=== PATIENT | male | born 1975 | race African-American/Black ===

== ENCOUNTER → 2020-05-04 08:10 | Outpatient (BNVA) | payer OTHER, SELFPAY | PROVIDERS: PCP Nurse Practitioner Family; Visit Provider Nurse Practitioner Gerontology | DX: Z76.89 Persons encountering health services in other specified circumstances (principal) ==

== ENCOUNTER → 2020-08-18 10:32 | Outpatient (REF) | payer OTHER, SELFPAY ==
--- NOTE | 2020-08-18 10:38 | CA_ITS ---
Transthoracic Echocardiogram Patient (Last, First, Middle): Wali Solo, Gender: Male Date of : 1975 Age: 44 Procedure Date: 08/18/2020 Procedure Type: Transthoracic Echocardiogram Location: OP Height: 193.04 cm Weight: 142.88 kg BSA: 2.69 m2 Heart Rate: bpm BP: 140 / 88 mmHg Arcade Games Mechanic: LAURO Gaming MD: Bassem Kelly [facility] Fan Blade Truer: Luis Rios MD Symptoms: R01.1 - Cardiac murmur, unspecified Study Quality: Fair ECG Rhythm: Sinus Conclusions: - Essentially normal study Findings Procedure Information The patient receives contrast. Left Ventricle Normal left ventricular size, thickness, and systolic function. The visually estimated ejection fraction is between 60-65%. Diastolic function is normal for age. Right Ventricle Normal right ventricular cavity size and systolic function. Atria Both atria are normal in size. There is no evidence of interatrial shunt. Aortic Valve Normal aortic valve structure and function. There is no aortic valve stenosis. There is no aortic valve regurgitation. Mitral Valve Normal mitral valve structure and function. There is trace mitral valve regurgitation. There is no mitral valve stenosis. Pulmonic Valve The pulmonic valve is likely normal. There is mild pulmonic valve regurgitation. Tricuspid Valve Normal tricuspid valve structure. Tricuspid regurgitation envelope is inadequate for calculation of right ventricular systolic pressure. Great Vessels All visible segments of the aorta are normal in size. The pulmonary artery was not well visualized. Venous The inferior vena cava is normal in size and collapses greater than 50% with inspiration. Pericardium/Pleural There is no evidence of pericardial effusion. Prior Study Comparison No prior study available for comparison. Measurements 2D Linear Measurements RVIDd: 3.72 RVIDd Index: 1.38 IVSd: 1.15 0.6-0.9/0.6-1.0 cm LVIDd: 5.71 3.9-5.3/4.2-5.9 cm LVIDd Index: 2.12 2.4-3.2/2.2-3.1 cm/m2 LVIDs: 3.60 2.0-3.6 cm LVPWd: 1.19 0.7-1.1 cm Ao Root: 2.80 2.1-3.5 cm LA Diam: 4.70 2.7-3.8/3.0-4.0 cm LAIDs Index: 1.75 1.5-2.3 cm/m2 LV Mass: 348.91 67-162/88-224 g LV Mass Index: 129.71 43-95/49-115 g/m2 LVOT Diam: 2.50 3.0+(-)1.3 cm 2D Systolic Function EF 4C: 63.20 >55% EF 2C: 55.70 >55% EF BiP: 60.10 >55% Mitral Valve MV Pk E: 1.04 MV PK A: 0.69 MV Decel Time: 155.00 E/A: 1.50 E'Lateral: 9.57 E'Medial: 7.74 E/E' Med: 13.40 E/E' Lat: 10.90 Aortic Valve AoV Pk Amrik: 1.66 AoV Mn Amrik: 1.20 AoV VTI: 0.30 AoV Pk Grad: 11.00 Aov Mn Grad: 6.00 MURIEL Cont.VTI: 3.33 LVOT LVOT Pk Amrik: 1.16 LVOT Mn Amrik: 0.84 LVOT VTI: 0.20 LVOT Pk Grad: 5.00 LVOT Mn Grad: 3.00 LVOT Diam: 2.50 LVOT Area: 4.91 Diastolic Function MV Pk E: 1.04 MV Pk A: 0.69 E/A: 1.50 E'Medial: 7.74 E/E' Med: 13.40 E' Laterial: 9.57 E/E' Lat: 10.90 Tricuspid Valve RA Press: 3.00 Great Vessels Aorta Ao Root-2D: 2.80 2.0-3.7 cm Ao Asc: 3.30 2.1-3.4 cm Ao Arch: 2.90 Updated in Other Vendor System with Status of Final Luis Rios MD electronically signed on 08/18/2020 3:54:03 PM with status of Final
== END ==
LOC: HO.CARD 10:32
PROVIDERS: PCP Nurse Practitioner Family; Visit Provider Nurse Practitioner Family
DX: R01.1 Cardiac murmur, unspecified (principal)
CPT/HCPCS: 93306; Q9957

== ENCOUNTER → 2021-05-19 08:24 | Outpatient (BNVA) | payer OTHER, SELFPAY | PROVIDERS: PCP Nurse Practitioner Family; Visit Provider Nurse Practitioner Gerontology ==

== ENCOUNTER → 2021-08-17 07:57 | Outpatient (BNVA) | payer OTHER, SELFPAY | PROVIDERS: PCP Nurse Practitioner Family; Visit Provider Nurse Practitioner Gerontology | DX: E10.65 Type 1 diabetes mellitus with hyperglycemia (principal); E10.22 Type 1 diabetes mellitus with diabetic chronic kidney disease; I12.9 Hypertensive chronic kidney disease with stage 1 through stage 4 chronic kidney disease, or unspecified chronic kidney disease; N18.30 Chronic kidney disease, stage 3 unspecified; E78.5 Hyperlipidemia, unspecified | CPT/HCPCS: 82947; 83036; 99212 ==

== ENCOUNTER → 2021-09-15 13:59 | Outpatient (BNVA) | payer OTHER, SELFPAY | PROVIDERS: PCP Nurse Practitioner Family; Visit Provider Registered Nurse Diabetes Educator | DX: E10.65 Type 1 diabetes mellitus with hyperglycemia (principal); Z79.4 Long term (current) use of insulin | CPT/HCPCS: 99211 ==

== ENCOUNTER 2022-01-12 12:51 | Outpatient (REF) | payer OTHER, SELFPAY ==
--- NOTE | ~2022-01-12 | US_ITS ---
EXAMINATION: ULTRASOUND EXTREMITY SOFT TISSUES NONVASCULAR CLINICAL INFORMATION: Left hip swelling COMPARISON: None TECHNIQUE: Grayscale and color imaging of the soft tissues over the lateral left hip and an area of palpable abnormality using a linear transducer. Comparison imaging of the right hip was performed. FINDINGS: No soft tissue mass or fluid collection is appreciated. US/US extremity nonvascular huffman IMPRESSION: No abnormality seen by ultrasound.
== END 2022-01-12 12:52 | disposition home or self-care (01) ==
LOC: HO.US 12:51
PROVIDERS: Visit Provider Nurse Practitioner Family
DX: M79.89 Other specified soft tissue disorders (principal)
CPT/HCPCS: 76882

== ENCOUNTER 2023-03-29 10:23 | Outpatient (AMB) | payer OTHER, SELFPAY ==
[2023-03-29 10:26] VITALS: BP 148/86; PULSE 92; BMI 40.8
--- NOTE | 2023-03-29 10:26 | MHC.OFFVIS ---
Intake Vital Signs 03/29/23 10:26 Height 6 ft 4 in Weight 335 lb 1.642 oz BMI 40.8 BP 148/86 H Blood Pressure Location Lt brachial Position Sitting Pulse 92 Pulse Source Pulse Oximeter Intake Visit Reasons: dm Intake Note: Patient presents today to follow up on DMT2. Last Diabetic Eye exam: 05/2021 Last Podiatry Visit: 03/2023 Random Glucose: 169 mg/dl HgA1C: 7.5% Guide Dog Instructor Required: No Accompanied by: Self / Same As Patient Allergies No Known Allergies Allergy (Verified 03/29/23 10:44) HPI HPI Comments History of Present Illness Details Patient is 47 yo male with DM type 1 diagnosed in May of 2017 a presents for continued management Patient was last seen 08/17/2021 by Latesha Blanchard NP Past medical history:DM1, CKD stage 3, hyperlipidemmia. Micro and macrovascular complications: + nephropathy, +Neuropathy, hx of osteomyelititis with amputation onf 2nd & 3rd toe of right foot. Diabetes medications:Toujeo 68 units. Admelog 18 units prior to breakfast and lunch and 28 units prior to dinner. Plus correction scale of plus 2 units for blood sugars over 200, +4 units for blood sugars over 250 and plus 6 units for blood sugars over 300. Unfortunately, patient did not bring sensor or glucometer follow-up visit Hypoglycemia: rare, over a month or two ago. Hyperglycemia: + urinary frequency (drinks a gallon of water daily), denies nocturia, + polydypsia Last eye exam: 05/2021 - ou no retinopathy. Needs to make appt [facility] Medical History (Updated 08/08/22 @ 12:47 by MARIANN Granados-CRISTELA) Amputation of left great toe Osteomyelitis of left foot Sepsis Osteomyelitis of foot Dyslipidemia Low vitamin B12 level Low vitamin D level Chronic kidney disease, stage 3 Type 1 diabetes mellitus with hyperglycemia Surgical History History of amputation of toe Family History Father Diabetes Mother Diabetes Social History Household Members: Family Housing: House Patient Tobacco Use Status: Former Tobacco user Quit Date: 20 yrs ago Physical Exam Absence of Cushingoid features. Absence of acromegalic features. Neck exam reveals nl size thyroid about 15 gms. No thyroid nodules palpable. No carotid bruits present. Lungs CTA. Heart S1 S2, Reg R/R. No M/R/ G. Skin exam reveals absence of vitiligo or acanthosis nigricans. Abdominal exam reveals Soft NT/ND with NA BS. No organomegaly present. Neck Other: . Extrem Other: Visual exam of foot performed. S/P amputation of R 2nd and 3 rd digits and L 1st digit No ulcerations or open lesions. No onchomycosis, no callouses.Pulses 2 + distally Sensationdecreased to monofilament exam. Vibratory sensation sensed is decreased with 128 Hz tuning fork Results AMB Hemoglobin A1c AMB Hemoglobin A1c 7.5 % Last Edit by Jazz Ortiz on 03/29/23 10:49 Assessment & Plan Assessment & Plan (1) Type 1 diabetes mellitus with hyperglycemia: Code(s): E10.65 - Type 1 diabetes mellitus with hyperglycemia Plan: This is a 47-year-old white male with history of type 1 diabetes being treated with basal-bolus insulin with glycemic control and known microvascular complications namely + nephropathy, +Neuropathy, hx of osteomyelititis with amputation onf 2nd & 3rd toe of right foot. Plan is to reinitiate the Solo 2 . He should also check basic metabolic panel, lipid profile, microalbumin to creatinine ratio as ordered by his primary care provider. Cannot make any adjustments insulin regimen because of lack of data. Will also check anti-G AD 65 antibody to differentiate between type 1 and type 2 diabetes. If patient has type 2 diabetes could consider using a GLP 1 agonist in combination with insulin depending on renal function. Orders: Orders AMB Hemoglobin A1c Today E10.65 - Type 1 diabetes mellitus with hyperglycemia Glutamic acid decarboxylase Ab Today E10.65 - Type 1 diabetes mellitus with hyperglycemia Medications: Refilled flash glucose sensor (FreeStyle Solo 2 Sensor kit) As directed every 2 weeks 2 ea 11RF Coding Level of Care Code Est Pt Level 4 (63257) Diagnoses Type 1 diabetes mellitus with hyperglycemia E10.65
[2023-04-02 07:37] LABS: Glucose, Whole Blood 169 mg/dL (60-115)
== END 2023-03-29 11:26 | disposition home or self-care (01) ==
PROVIDERS: PCP Nurse Practitioner Family; Visit Provider Internal Medicine Endocrinology, Diabetes & Metabolism
DX: E10.65 Type 1 diabetes mellitus with hyperglycemia (principal)
CPT/HCPCS: 99214

== ENCOUNTER → 2023-03-29 10:23 | Outpatient (BNVA) | payer OTHER, SELFPAY | PROVIDERS: PCP Nurse Practitioner Family; Visit Provider Internal Medicine Endocrinology, Diabetes & Metabolism | DX: E10.65 Type 1 diabetes mellitus with hyperglycemia (principal) | CPT/HCPCS: 82947; 83036; 99212 ==

== ENCOUNTER 2023-05-14 08:46 | Outpatient (AMB) | payer OTHER, SELFPAY ==
--- NOTE | 2023-05-14 08:47 | A.OFFPC_ITS ---
Vital Signs 05/14/23 08:50 Height 6 ft 4 in Weight 331 lb BMI 40.3 BP 120/80 Blood Pressure Location Rt brachial Position Sitting Pulse 84 Pulse Source Pulse Oximeter Pulse Oximetry (%) 97 Oxygen Delivery Method Room Air Intake Visit Reasons: f/u DM- NEEDS PHQ9 + THRIVE Intake Note: Patient here for diabetes F/U. Pt states sugars have been decent at home. Allergies No Known Allergies Allergy (Verified 05/14/23 08:50) Medication List - Last Reconciled 05/14/23 by MARIANN Granados- amlodipine 10 mg PO DAILY blood sugar diagnostic As directed cyanocobalamin (vitamin B-12) 1,000 mcg IM .Qmonthly fenofibrate 54 mg PO DAILY flash glucose scanning reader ([employer]Style Solo 2 [place]) As directed flash glucose sensor (FreeStyle Solo 2 Sensor kit) As directed every 2 weeks folic acid 0.8 mg PO DAILY insulin glargine U-300 conc (Toujeo Max U-300 SoloStar) 68 units (0.2267 mL) subcut DAILY insulin lispro Inject 18 units before breakfast and lunch and 24 units before supper subcutaneously; irbesartan 150 mg PO DAILY ketoconazole 2% 1 appl topical DAILY 30 days lancets (OOTUyle Lancets) As directed pen needle, diabetic (BD Ultra-Fine Cassandra Pen Needle) As directed pravastatin 80 mg PO DAILY 90 days Tobacco use date assessed: 05/14/23 Dental Screening Dental Screen Date: 05/14/23 Did you have a dental visit in the last 12 months?: No Did you have a dental problem in the last 6 months where you did not have access to dental care?: No Was dental information given to patient?: Patient has dentist HPI f/u DM- NEEDS PHQ9 + THRIVE HPI Details HTN: Blood pressure is stable, managed with amlodipine 10mg and irbesartan 150mg. Denies chest pain, shortness of breath, headache, dizziness, and blurred vision. Dyslipidemia: Pt's last cholesterol and trigs were elevated (labs from [facility]). Will increase pravastatin from 20mg to 80mg. Will also start fenofibrate 54mg. Pt is a type 1 diabetic, sees endo. Hx of B12 deficiency, will order labs. Hx of CKD, pt does not have a media coordinator, will refer. Due for colon screen, will refer to GI. [facility] Medical History (Updated 05/14/23 @ 09:16 by TARUN Granados) Amputation of left great toe Osteomyelitis of left foot Sepsis Osteomyelitis of foot Dyslipidemia Low vitamin B12 level Low vitamin D level Chronic kidney disease, stage 3 Type 1 diabetes mellitus with hyperglycemia Surgical History History of amputation of toe Family History Father Diabetes Mother Diabetes Social History Household Members: Family Housing: House Patient Tobacco Use Status: Former Tobacco user Quit Date: 20 yrs ago e-Cigarette/Vaping Use: Never Used service: No Current occupational status: employed Cognitive needs: No Hearing needs: No Vision needs: Yes Questionnaire PHQ-9 Over the last 2 weeks, how often have you been bothered by any of the following problems? 1. Little interest or pleasure in doing things: not at all 2. Feeling down, depressed, or hopeless: not at all 3. Trouble falling or staying asleep, or sleeping too much: several days 4. Feeling tired or having little energy: not at all 5. Poor appetite or overeating: not at all 6. Feeling bad about yourself - or that you are a failure or have let yourself or your family down: not at all 7. Trouble concentrating on things, such as reading the newspaper or watching television: not at all 8. Moving or speaking so slowly that other people could have noticed. Or the opposite - being so fidgety or restless that you have been moving around a lot more than usual: not at all 9. Thoughts that you would be better off or of hurting yourself in some way: not at all Total score: 1 Depression Screening Interpretation: Negative Depression Screening Done: Yes 51114 - PHQ-9 Billing: Yes Source: Developed by Drs. Karthik Christie, Priya Winchester, Terence Jo and colleagues, with an educational meri from [employer]. Thrive Questionnaire Date Thrive assessed: 05/14/23 I am a: Patient What is your living situation today?: I have a steady place to live Within the past 12 months, did the food you bought not last and you didn't have the money to get more?: Never true Within the past 12 months, did you worry whether your food would run out before you got money to buy more?: Never true Do you have trouble paying for medicines?: No Do you have trouble getting transportation to medical appointments?: No Do you have trouble paying your heating and electricity bill?: No Do you have trouble taking care of your child, family member or friend?: No Do you have trouble with day-to-day activities such as bathing, preparing meals, shopping, managing finances, etc.?: No Are you currently unemployed and looking for a job?: No Are you interested in more education?: No THRIVE Score: 0 AUDIT C Alcohol Use Questionnaire (AUDIT-C) 1. How often do you have a drink containing alcohol?: Monthly or less 2. How many drinks containing alcohol do you have on a typical day when you are drinking?: 1 or 2 3. How often do you have six or more drinks on one occasion?: Never Total Score: 1 Score Reviewed/Action Taken: No DENA-7 AMB Questionnaire DENA-7 Date DENA - 7 assessed: 05/14/23 Feeling nervous, anxious, or on edge: 0 = Not at all Not being able to stop or control worryin = Not at all Worrying too much about different things: 0 = Not at all Trouble relaxin = Not at all Being so restless that it is hard to sit still: 0 = Not at all Becoming easily annoyed or irritable: 0 = Not at all Feeling afraid as if something awful might happen: 0 = Not at all Total DENA-7 score (0-4 normal; 5-9 mild; 10-14 moderate; 15-21 severe): 0 Source: Developed by Drs. Karthik Christie, Priya Winchester, Terence Jo and colleagues, with an educational meri from [employer] DENA-7 Assessment Billing DENA-7 Assessment Tool: DENA-7 Assessment 89665 Review of Systems Const Reports as per HPI Physical exam (Primary Care) Vital Signs: Last Vital Signs Pulse 84 01/22/24 08:50 BP 120/80 05/14/23 08:50 Pulse Ox 97 05/14/23 08:50 Oxygen Delivery Method Room Air 05/14/23 08:50 BMI result Body Mass Index 40.3 Tobacco/Smoking Status: Tobacco use Status Tobacco use date assessed 05/14/23 05/14/23 08:53 Patient Tobacco Use Status Former Tobacco user 05/14/23 08:49 e-Cigarette/Vaping Use Never Used 05/14/23 08:53 Depression Screening Interpretation: Negative Const General: cooperative Nutritional Appearance: obese morbidly obese Orientation/consciousness: patient oriented x3 Resp Effort & Inspection: normal respiratory effort Auscultation: clear to auscultation bilaterally Cardio Rate: regular rate Rhythm: regular rhythm Heart sounds: S1 normal heart sound present and S2 normal heart sound present Neuro General: patient oriented x3 Extrem Other: no sensation with use of monofilament left foot, + sensation to right foot, right foot missing toes 2 and 3, left foot missing tip of 1st toe, hammertoes noted to left foot, callous formation to distal plantar aspect of right foot, +1 pitting edema to BLE, left>right Psych Appearance: grossly normal Mental Status: mental status grossly normal Speech and movement: Normal speech and movement present Affect: normal affect Attitude: cooperative Thought process: Normal thought process present Thought content: Normal thought content present Insight: Good insight present (Psych) Judgement: Good judgement present (Psych) Assessment and Plan Assessment & Plan (1) Low vitamin B12 level: Code(s): E53.8 - Deficiency of other specified B group vitamins Plan: Labs ordered (2) Chronic kidney disease, stage 3: Code(s): N18.30 - Chronic kidney disease, stage 3 unspecified Plan: referred to nephrology (3) Type 1 diabetes mellitus with hyperglycemia: Code(s): E10.65 - Type 1 diabetes mellitus with hyperglycemia (4) Microhematuria: Code(s): R31.29 - Other microscopic hematuria (5) Screening for colon cancer: Code(s): Z12.11 - Encounter for screening for malignant neoplasm of colon (6) Low vitamin D level: Code(s): R79.89 - Other specified abnormal findings of blood chemistry Plan The patient agreed to the use of a medical underwriter for this encounter. Scribed for TARUN Mahoney by Melly Quijano medical underwriter, on 05/14/2023 at 09:00 EST. Orders: Orders Intrinsic Factor Antibodies Today E53.8 - Deficiency of other specified B group vitamins Parietal Cell Antibody Today E53.8 - Deficiency of other specified B group vitamins Urine Cytology Today R31.29 - Other microscopic hematuria Urine Culture Today R31.29 - Other microscopic hematuria UA CC w/rflx Micro + Cult Today R31.29 - Other microscopic hematuria Endomysial IgA rflx Titer Today E53.8 - Deficiency of other specified B group vitamins Vitamin B12 and Folate Today E53.8 - Deficiency of other specified B group vitamins CT urogram Today R31.29 - Other microscopic hematuria Transglutaminase IgA Today E53.8 - Deficiency of other specified B group vitamins Vitamin D 25-OH Total Today R79.89 - Other specified abnormal findings of blood chemistry Referrals Nephrology Referral E10.65 - Type 1 diabetes mellitus with hyperglycemia, N18.30 - Chronic kidney disease, stage 3 unspecified Urology Referral R31.29 - Other microscopic hematuria Gastroenterology Referral Z12.11 - Encounter for screening for malignant neoplasm of colon Medications: New fenofibrate 54 mg PO DAILY 90 tabs 0RF Changed From pravastatin Future refills pending upcoming appt 20 mg PO DAILY 90 days 90 tabs 0RF To pravastatin Future refills pending upcoming appt 80 mg PO DAILY 90 days 90 tabs 0RF Coding Level of Care Code Est Pt Level 3 (99741) Diagnoses Low vitamin B12 level E53.8 Chronic kidney disease, stage 3 N18.30 Type 1 diabetes mellitus with hyperglycemia E10.65 Microhematuria R31.29 Screening for colon cancer Z12.11 Low vitamin D level R79.89 Additional Codes DENA-7 Assessment Billing - DENA-7 Assessment Tool: DENA-7 Assessment 96150 ([id number])
[2023-05-14 08:50] VITALS: BP 120/80; PULSE 84; O2SAT 97; BMI 40.3
== END 2023-05-14 09:22 | disposition home or self-care (01) ==
PROVIDERS: PCP Nurse Practitioner Family; Visit Provider Nurse Practitioner Family
DX: N18.30 Chronic kidney disease, stage 3 unspecified (principal); E10.65 Type 1 diabetes mellitus with hyperglycemia; E53.8 Deficiency of other specified B group vitamins; R31.29 Other microscopic hematuria; Z12.11 Encounter for screening for malignant neoplasm of colon; R79.89 Other specified abnormal findings of blood chemistry
CPT/HCPCS: 99213

== ENCOUNTER 2023-07-09 11:01 | Outpatient (AMB) | payer OTHER, SELFPAY ==
--- NOTE | 2023-07-09 11:08 | A.OFFVIS_ITS ---
Intake Intake Visit Reasons: microscopic hematuria Intake Note: NEW Patient presents today to established treatment for microscopic hematuria Meds- None Allergies to antibiotics: None Blood thinners: None Mushroom Cultivator Required: No Accompanied by: Self / Same As Patient Allergies No Known Allergies Allergy (Verified 07/09/23 11:10) HPI HPI Comments History of Present Illness Details Andrea is a 47-year-old male who is here for evaluation due to microsco pic hematuria. He has a history of cigarette smoking between the ages of about [age] he states he smokes about 2 cigarettes a day. He no longer uses nicotine products. He denies irritative voiding symptoms. I have discussed that reasons for blood in the urine may include but are not limited to kidney stones, cancer in the urinary tract, BPH, kidney stone disease or inflammatory conditions of the urinary tract. I have discussed workup to include cystoscopy evaluation. Urinalysis 3+ protein, 1+ blood Plan: Urine for cytology. The patient has a CT scan already pending for07/25/23 PSA screening. Follow-up for office cystoscopy. The patient states he has a Nephrology visit pending as well. [facility] Medical History Amputation of left great toe Osteomyelitis of left foot Sepsis Osteomyelitis of foot Dyslipidemia Low vitamin B12 level Low vitamin D level Chronic kidney disease, stage 3 Type 1 diabetes mellitus with hyperglycemia Surgical History History of amputation of toe Family History Father Diabetes Mother Diabetes Social History Household Members: Family Housing: House Patient Tobacco Use Status: Former Tobacco user Quit Date: 20 yrs ago e-Cigarette/Vaping Use: Never Used service: No Current occupational status: employed Cognitive needs: No Hearing needs: No Vision needs: Yes Review of Systems Const All systems reviewed & are unremarkable except as noted in HPI and below Reports no additional complaints Eyes Reports no additional complaints ENT Reports no additional complaints Card Denies dyspnea Resp Denies cough and Denies dyspnea GI Reports no additional complaints Musc Reports no additional complaints Skin/Breast Denies rash and Denies unusual bruising Neuro Reports no additional complaints Psych Reports no additional complaints Endo Reports no additional complaints Tomy/Lymph Reports no additional complaints Aller/Immun Reports no additional complaints Physical Exam Const General: healthy appearing, no acute distress and well developed Orientation/consciousness: patient oriented x3 HEENT Head: Yes normocephalic and Yes atraumatic Eyes Conjunctivae: conjunctivae normal Neck Neck: Yes normal visual inspection Chest Chest palpation & inspection: normal inspection of the chest Resp Effort & Inspection: normal respiratory effort Cardio Rate: regular rate GI Inspection: Yes normal to inspection Skin General skin exam: no rashes or lesions noted Neuro General: patient oriented x3 Extrem General: No pedal edema Psych Appearance: grossly normal Affect: normal affect Results AMB Urinalysis, Automated UA Leukoctes 0 Ginger/uL Last Edit by Kristina Flores CMA on 07/09/23 11 :20 UA Nitrite Negative Last Edit by Kristina Flores CMA on 07/09/23 11: 20 UA Urobilinogen 0.2 mg/dL Last Edit by Kristina Flores CMA on 4 11:20 UA Protein 300 mg/dL Last Edit by Kristina Flores CMA on 07/09/23 11: 20 UA pH 5.5 Last Edit by Kristina Flores [facility] on 07/09/23 11:20 UA Blood 25 Rah/uL Last Edit by Kristina Flores [facility] on 07/09/23 11:20 UA Specific [place] 1.030 Last Edit by Kristina Flores CMA on 11:20 UA Ketone Negative Last Edit by Kristina Flores CMA on 07/09/23 11:2 0 UA Bilirubin 00 mg/dL Last Edit by Kristina Flores CMA on 07/09/23 11 :20 UA Glucose 0 mg/dL Last Edit by Kristina Flores CMA on 07/09/23 11:20 Results Reviewed Results Reviewed: Laboratory Last Values Urine pH (Auto) 5.5 07/09/23 11:10 Specific [place] (Auto) 1.030 07/09/23 11:10 Urine Protein (Auto) 300 mg/dL 07/09/23 11:10 Glucose (UA)(Auto) 0 mg/dL 07/09/23 11:10 Urine Ketones (Auto) Negative 07/09/23 11:10 Urine Blood (Auto) 25 Rah/uL 07/09/23 11:10 Urine Nitrite (Auto) Negative 07/09/23 11:10 Urine Bilirubin (Auto) 00 mg/dL 07/09/23 11:10 Urine Urobilinogen (Auto) 0.2 mg/dL 07/09/23 11:10 Leukocyte Esterase (Auto) 0 Ginger/uL 07/09/23 11:10 Assessment & Plan Assessment & Plan (1) Screening PSA (prostate specific antigen): Code(s): Z12.5 - Encounter for screening for malignant neoplasm of prostate (2) Microhematuria: Code(s): R31.29 - Other microscopic hematuria (3) Proteinuria: Code(s): R80.9 - Proteinuria, unspecified Plan CT abdomen- pending for 07/25/2023 PSA Urine for cytology Follow-up office cystoscopy Patient has nephrology visit pending Orders: Orders AMB Urinalysis Automated Today R33.9 - Retention of urine, unspecified PSA,Total (Free>4and<10) Today Z12.5 - Encounter for screening for malignant neoplasm of prostate Patient Instructions: The patient had an opportunity to ask questions regarding treatment plan. All questions were answered. Laboratory studies and physical exam results were discussed and reviewed in detail. No major barriers to understanding were identified. The patient expressed understanding and agreement with the above treatment plan. The patient is aware they should contact our office by phone for worsening of their current condition or the appearance of new symptoms. Compliance is encouraged with any medications and followup testing that is ordered. It is a privilege to be allowed the opportunity to participate in the urologic care of your patient. If you have any questions or concerns regarding treatment for the above conditions please do not hesitate to contact me. The office telephone contact is [phone]. This note is constructed in part using voice recognition software. While every effort has been made to ensure accuracy clerical office errors may have been included. Yours sincerely, Brian Fragoso MD Coding Level of Care Code New Pt Level 4 (53443) Diagnoses Screening PSA (prostate specific antigen) Z12.5 Microhematuria R31.29 Proteinuria R80.9
== END 2023-07-09 11:49 | disposition home or self-care (01) ==
PROVIDERS: PCP Nurse Practitioner Family; Visit Provider Urology
DX: Z12.5 Encounter for screening for malignant neoplasm of prostate (principal); R31.29 Other microscopic hematuria; R80.9 Proteinuria, unspecified; R33.9 Retention of urine, unspecified
CPT/HCPCS: 99204

== ENCOUNTER 2023-07-09 11:08 | Outpatient (REF) | payer OTHER, SELFPAY ==
[2023-07-09 16:33] LABS: Urine Cytology See Pathology rpt
== END 2023-07-09 11:09 | disposition home or self-care (01) ==
LOC: HO.LAB 11:08
PROVIDERS: PCP Nurse Practitioner Family; Visit Provider Urology
DX: R31.29 Other microscopic hematuria (principal); R80.9 Proteinuria, unspecified; Z12.5 Encounter for screening for malignant neoplasm of prostate
CPT/HCPCS: 81003; 88112; 99202

== ENCOUNTER 2023-07-09 12:16 | Outpatient (REF) | payer OTHER, SELFPAY ==
[2023-07-09 16:02] LABS: MANUAL DIFF FLAG NO
[2023-07-09 16:13] LABS: Basophils Percent Auto 0.3 % (0-2); Eosinophils Absolute Auto 0.1 X10*3/uL (0.0-0.4); Eosinophils Percent Auto 1.4 % (0-4); Hematocrit 36.7 % (42.0-52.0); Imm Gran Abs Auto 0.02 X10*3/uL (0.00-0.03); Imm Gran Pct Auto 0.3 % (0.0-0.4); Lymphocytes Absolute Auto 1.8 X10*3/uL (1.2-4.9); Lymphocytes Percent Auto 25.6 % (20-40); Mean Corpuscular HGB Conc 32.7 g/dl (31.0-36.0); Mean Corpuscular Hemoglobin 28.4 pg (27.0-33.0); Mean Corpuscular Volume 86.8 fL (80.0-98.0); Monocytes Absolute Auto 0.7 X10*3/uL (0.1-1.2); Monocytes Percent Auto 10.1 % (2-11); Neutrophils Absolute Auto 4.4 x10*3/uL (2.0-8.3); Neutrophils Percent Auto 62.3 % (45-73); Platelet Count 296 X10*3/uL (160-400); Red Blood Count 4.23 X10*6/uL (4.60-5.80); Red Cell Distribution Width 14.1 % (11.0-16.0); White Blood Count 7.1 X10*3/uL (4.8-10.8)
[2023-07-09 16:23] LABS: Estimated Average Glucose 183 mg/dL
[2023-07-09 16:36] LABS: Alanine Aminotransferase 31 U/L (0-40); Albumin Level 4.3 g/dL (3.5-5.0); Alkaline Phosphatase 46 U/L (39-117); Anion Gap 14 (12-20); Aspartate Amino Transferase 28 U/L (5-37); Bilirubin Total 0.5 mg/dL (0.0-1.0); Blood Urea Nitrogen 25 mg/dL (9-16); Calcium 9.7 mg/dL (8.4-10.2); Carbon Dioxide 25 mmol/L (22-29); Chloride 104 mmol/L (96-108); Cholesterol 234 mg/dL (<200); Estimated Glomerular Filt Rate 51; Glucose Fasting 179 mg/dL (60-99); HDL Cholesterol 48 mg/dL (>40); LDL Cholesterol Calculated 142 mg/dL (<100); Potassium 4.5 mmol/L (3.3-5.1); Sodium 138 mmol/L (135-145); Total Protein 7.7 g/dL (6.5-8.0); Triglycerides 224 mg/dL (<150)
[2023-07-09 16:53] LABS: PSA,Total (Free>4and<10) 0.35 ng/mL (0.00-4.00)
[2023-07-09 16:55] LABS: TSH reflex Free T4 0.88 uIU/mL (0.32-4.0); Vitamin D 25-OH Total 11.4 ng/mL (>30)
[2023-07-09 17:04] LABS: Folate 16.8 ng/mL (> or = 4.0); Vitamin B12 751 pg/mL (200-900)
[2023-07-10 20:48] LABS: Transglutaminase IgA <1.0 U/mL
[2023-07-12 18:39] LABS: Intrinsic Factor Antibodies Negative (Negative)
[2023-07-13 13:09] LABS: Endomysial IgA Antibody Negative (Negative)
[2023-07-14 12:58] LABS: Parietal Cell Antibody <=20.0 Unit (<=20.0)
== END 2023-07-09 12:17 | disposition home or self-care (01) ==
LOC: HO.HMGCLDS 12:16
PROVIDERS: PCP Nurse Practitioner Family; Referring Provider Urology; Visit Provider Nurse Practitioner Family
DX: E10.65 Type 1 diabetes mellitus with hyperglycemia (principal); E53.8 Deficiency of other specified B group vitamins; E78.5 Hyperlipidemia, unspecified; D64.9 Anemia, unspecified; R31.29 Other microscopic hematuria; R33.9 Retention of urine, unspecified; E55.9 Vitamin D deficiency, unspecified; Z12.5 Encounter for screening for malignant neoplasm of prostate
CPT/HCPCS: 36415; 80053; 80061; 82306; 82607; 82746; 83036; 83516; 84153; 84443; 85025; 86231; 86340; 86364

== ENCOUNTER 2023-07-25 07:59 | Outpatient (REF) | payer OTHER, SELFPAY ==
--- NOTE | ~2023-07-25 | CT_ITS ---
EXAMINATION: CT ABDOMEN AND PELVIS WITHOUT AND WITH CONTRAST CLINICAL INFORMATION: Microscopic hematuria. COMPARISON: None available. TECHNIQUE: Noncontrast CT of the abdomen and pelvis is performed followed by split bolus contrast-enhanced images using 85 mL Omnipaque 350 contrast.? Postcontrast imaging is performed during the combined nephrogram and excretion phase. Sagittal and coronal reformatted images were obtained on the technologist's workstation for both the precontrast and postcontrast phases. This CT examination was performed using dose optimization techniques as appropriate, variously including the following: *Automated exposure control *Adjustment of mA and/or kV according to patient size (this includes techniques or standardized protocols for targeted exams where dose is matched to indication/reason for exam; i.e. extremities or head) *Use of iterative reconstruction technique DLP: 1624 mGy-cm FINDINGS: LUNG BASES: The visualized lung bases are unremarkable. LIVER, GALLBLADDER, AND BILIARY TREE: Enlarged liver measuring 21 cm right lobe length. Hepatic steatosis. No discrete liver mass. No biliary ductal dilatation. The gallbladder is unremarkable with no evidence of radiopaque gallstones, gallbladder wall thickening, or obvious pericholecystic inflammatory changes. PANCREAS: No discrete pancreatic mass or pancreatic ductal dilatation. SPLEEN: The spleen appears normal. ADRENAL GLANDS: No adrenal mass. KIDNEYS AND URETERS: 2 mm nonobstructing calculus in the upper pole of the left kidney. Suspect at least 3 punctate nonobstructing calculi in the right kidney. The nephrograms are symmetric. No suspicious renal mass. Tiny hypodensity in the anterior right upper kidney is too small to characterize but likely a small cyst. No imaging follow-up is recommended. Urinary excretion is symmetric. No hydroureteronephrosis. No ureteral calculus. No filling defect in the collecting systems. BLADDER: There is decompressed. No discrete bladder mass. GASTROINTESTINAL TRACT: The small and large bowel are normal in caliber. The appendix is normal. No discrete bowel mass is seen. ABDOMINAL WALL: Small fat-containing umbilical hernia. LYMPH NODES: No bulky adenopathy. VASCULAR: Mild aortic atherosclerosis. PELVIC VISCERA: Unremarkable. OSSEUS STRUCTURES: Degenerative changes in the spine. CT/CT urogram IMPRESSION: 2 mm nonobstructing calculus upper left kidney and 3 punctate nonobstructing calculi in the right kidney. No hydroureteronephrosis.
[2023-07-25] MEDS: iohexoL 350 MG/ML 100 ML INFUS..BTL IV (08:48)
== END 2023-07-25 08:00 | disposition home or self-care (01) ==
LOC: HO.CT 07:59
PROVIDERS: PCP Nurse Practitioner Family; Visit Provider Nurse Practitioner Family
DX: R31.29 Other microscopic hematuria (principal)
CPT/HCPCS: 74178; Q9967

== ENCOUNTER 2023-08-24 09:56 | Outpatient (AMB) | payer OTHER, SELFPAY ==
[2023-08-24 10:02] VITALS: BP 140/80; PULSE 90; O2SAT 96; BMI 40.3
--- NOTE | 2023-08-24 10:02 | HO.NEPHOV ---
Vital Signs 08/24/23 10:02 Height 6 ft 4 in Weight 331 lb 2 oz BMI 40.3 BP 140/80 H Blood Pressure Location Rt brachial Position Sitting Pulse 90 Pulse Source Pulse Oximeter Pulse Oximetry (%) 96 Oxygen Delivery Method Room Air Intake Visit Reasons: Rscng 08/07 appt- CKD 3/ LVM Consulting Nurse Required: No Accompanied by: Self / Same As Patient Allergies No Known Allergies Allergy (Verified 08/24/23 10:04) HPI Comments Details: I would the privilege of seeing Mr. Solo for mild LAURA, CKD, proteinuria and hypertension on a backdrop of diabetes mellitus. He denies any diabetic retinopathy or neuropathy. His hemoglobin A1c has gone high. He has dyslipidemia and is on medications. He has gained significant weight. He has some pedal edema. He has not had any coronary artery disease, congestive heart failure, CVA, carotid stenosis, peripheral arterial disease or known renal artery stenosis. He does not take any excessive nonsteroidal anti-inflammatory medications. His recent renal ultrasound showed a renal cyst as well as bilateral renal calculi. He has not known to have any prostatic issues. He has not had any hospitalizations for urinary tract infections as a child. He denies epistaxis, recurrent sinusitis, sore throat, recent antibiotic intake, hematuria, sensorineural deafness. His serum creatinine has gone up to 1.47 PFSH Medical History Amputation of left great toe Osteomyelitis of left foot Sepsis Osteomyelitis of foot Dyslipidemia Low vitamin B12 level Low vitamin D level Chronic kidney disease, stage 3 Type 1 diabetes mellitus with hyperglycemia Surgical History History of amputation of toe Family History Father Diabetes Mother Diabetes Social History Household Members: Family Housing: House Patient Tobacco Use Status: Former Tobacco user Quit Date: 20 yrs ago e-Cigarette/Vaping Use: Never Used service: No Current occupational status: employed Cognitive needs: No Hearing needs: No Vision needs: Yes Physical Exam Vital Signs: Last Vital Signs Pulse 90 08/24/23 10:02 BP 140/80 H 08/24/23 10:02 Pulse Ox 96 08/24/23 10:02 Oxygen Delivery Method Room Air 08/24/23 10:02 BMI result Body Mass Index 40.3 Const General: comfortable and no acute distress Orientation/consciousness: patient oriented x3 HEENT Head: Yes normocephalic Mouth: Normal oral and palatal mucosa present Eyes EOM: EOMs intact bilaterally Neck Neck: Yes supple Resp Auscultation: clear to auscultation bilaterally Cardio Jugular venous distension: no JVD Rate: regular rate GI Palpation (GI): Soft to palpation Auscultation: normal bowel sounds General: Yes no CVA tenderness Back/Spine/Pelvis Back: no CVA tenderness Skin General skin exam: no rashes or lesions noted Neuro General: patient oriented x3 and moves all extremities Extrem General: Yes edema Results Reviewed Nephrology Results: Hgb 12.0 g/dl (14.0-18.0) L 07/09/23 WBC 7.1 X10*3/uL (4.8-10.8) 07/09/23 Plt Count 296 X10*3/uL (160-400) 07/09/23 Sodium 138 mmol/L (135-145) 07/09/23 Potassium 4.5 mmol/L (3.3-5.1) 07/09/23 Chloride 104 mmol/L (96-108) 07/09/23 Carbon Dioxide 25 mmol/L (22-29) 07/09/23 BUN 25 mg/dL (9-16) H 07/09/23 Creatinine 1.49 mg/dL (0.5-1.4) H 07/09/23 Calcium 9.7 mg/dL (8.4-10.2) 07/09/23 Assessment & Plan Assessment & Plan (1) CKD stage 3 secondary to diabetes: Code(s): E11.22 - Type 2 diabetes mellitus with diabetic chronic kidney disease; N18.30 - Chronic kidney disease, stage 3 unspecified Category: Medical (2) Essential (primary) hypertension: Code(s): I10 - Essential (primary) hypertension Category: Medical (3) Renal cyst: Code(s): N28.1 - Cyst of kidney, acquired Category: Medical (4) Renal calculus: Code(s): N20.0 - Calculus of kidney Category: Medical (5) Diabetic nephropathy: Code(s): E11.21 - Type 2 diabetes mellitus with diabetic nephropathy Category: Medical Qualifiers: Diabetes mellitus type: type 2 Qualified Code(s): E11.21 - Type 2 diabetes mellitus with diabetic nephropathy Plan Mr. Solo has mild LAURA. Differential diagnosis includes progression of his diabetic renal disease. He is at risk for secondary FSGS given his BMI. He is on fenofibrate. He is hypervolemic. He has been on amlodipine which has been discontinued due to gingival hyperplasia. He is on ARB. Given his renal calculi, edema and history hypertension I started him on chlorthalidone 12.5 mg daily. I asked him to cut back sodium in the diet and aim for significant weight loss. He will be a candidate for Farxiga which I plan to initiate with time. If his serum creatinine is going up I plan to temporarily hold his fenofibrate. We may have to cut back or hold his ARB as well if his serum creatinine rises. I encouraged him to avoid nonsteroidal anti-inflammatories and maintain good hydration. He can cut back meat in the diet along with sodium especially given renal calculi. He should have more fruits and vegetables and increase citrate in the diet. I plan to do a 24 urine collection for stone screen with time. We will check his serum uric acid at the next visit. His blood pressure needs to be maintain a goal. I have ordered follow-up blood work and plan to see him in a couple of weeks for continued care. Answered all questions. Follow-up appointment given. Orders: Orders Blood Urea Nitrogen Today Electrolytes Today Calcium Today Creatinine Today Immunofixation Pnl, Serum Today Protein Creatinine Ratio, Ur Today Medications: New chlorthalidone 12.5 mg (1/2 x 25 mg) PO DAILY 30 days 15 tabs 3RF Coding Level of Care Code New Pt Level 4 (48540) Diagnoses CKD stage 3 secondary to diabetes E11.22; N18.30 Essential (primary) hypertension I10 Renal cyst N28.1 Renal calculus N20.0 Diabetic nephropathy associated with type 2 diabetes mellitus E11.21 Diabetes mellitus type: type 2
== END 2023-08-24 10:41 | disposition home or self-care (01) ==
PROVIDERS: PCP Nurse Practitioner Family; Visit Provider Internal Medicine Nephrology
DX: E11.22 Type 2 diabetes mellitus with diabetic chronic kidney disease (principal); N18.30 Chronic kidney disease, stage 3 unspecified; I10 Essential (primary) hypertension; N28.1 Cyst of kidney, acquired; N20.0 Calculus of kidney; E11.21 Type 2 diabetes mellitus with diabetic nephropathy
CPT/HCPCS: 99204

== ENCOUNTER → 2023-08-24 09:56 | Outpatient (BNVA) | payer OTHER, SELFPAY | PROVIDERS: PCP Nurse Practitioner Family; Visit Provider Internal Medicine Nephrology | DX: I12.9 Hypertensive chronic kidney disease with stage 1 through stage 4 chronic kidney disease, or unspecified chronic kidney disease (principal); E11.22 Type 2 diabetes mellitus with diabetic chronic kidney disease; N18.30 Chronic kidney disease, stage 3 unspecified; E11.21 Type 2 diabetes mellitus with diabetic nephropathy; N28.1 Cyst of kidney, acquired; N17.9 Acute kidney failure, unspecified; N20.0 Calculus of kidney | CPT/HCPCS: 99202 ==

== ENCOUNTER 2023-10-16 10:04 | Outpatient (REF) | payer OTHER, SELFPAY ==
[2023-10-16 10:20] LABS: MANUAL DIFF FLAG NO
[2023-10-16 10:35] LABS: Basophils Percent Auto 0.4 % (0-2); Eosinophils Absolute Auto 0.2 X10*3/uL (0.0-0.4); Eosinophils Percent Auto 2.3 % (0-4); Hematocrit 35.4 % (42.0-52.0); Hemoglobin 11.8 g/dl (14.0-18.0); Imm Gran Abs Auto 0.02 X10*3/uL (0.00-0.03); Imm Gran Pct Auto 0.3 % (0.0-0.4); Immature Retic Fraction 21.2 % (2.3-13.4); Lymphocytes Absolute Auto 2.5 X10*3/uL (1.2-4.9); Lymphocytes Percent Auto 33.6 % (20-40); Mean Corpuscular HGB Conc 33.3 g/dl (31.0-36.0); Mean Corpuscular Hemoglobin 28.1 pg (27.0-33.0); Mean Corpuscular Volume 84.3 fL (80.0-98.0); Monocytes Absolute Auto 0.6 X10*3/uL (0.1-1.2); Monocytes Percent Auto 8.3 % (2-11); Neutrophils Absolute Auto 4.2 x10*3/uL (2.0-8.3); Neutrophils Percent Auto 55.1 % (45-73); Platelet Count 277 X10*3/uL (160-400); Red Cell Distribution Width 13.4 % (11.0-16.0); Retic HGB Equivalent 31.9 pg (30.0-35.0); Reticulocyte Percent 2.1 % (0.5-1.8); White Blood Count 7.6 X10*3/uL (4.8-10.8)
[2023-10-16 10:38] LABS: Urine Cytology See Pathology rpt
[2023-10-16 10:42] LABS: Appearance Urine Clear; Color Urine Yellow; Glucose Urine UA 100 mg/dL (Negative); Leukocyte Esterase Urine Negative (Negative); Nitrite Urine Negative (Negative); Specific Gravity - Urine >= 1.030 (1.005-1.025); UMIC TRIGGER UACC YES; Urine Blood Trace (Negative); Urine Ketones Negative (Negative); Urine Protein 300 (3+) mg/dL (Neg-Trace)
[2023-10-16 11:13] LABS: Bacteria Urine None Seen (None Seen); Hyaline Casts Urine 0-2 /LPF (0-2); RBC Urine 0-2 /HPF (0-2); Squamous Epithelial Cell Urine 0-2 /HPF (0-2); WBC Urine 0-5 /HPF (0-5)
[2023-10-16 11:23] LABS: Blood Urea Nitrogen 37 mg/dL (9-16)
[2023-10-16 11:28] LABS: Alanine Aminotransferase 28 U/L (0-40); Albumin Level 4.4 g/dL (3.5-5.0); Alkaline Phosphatase 47 U/L (39-117); Anion Gap 15 (12-20); Aspartate Amino Transferase 30 U/L (5-37); Bilirubin Total 0.5 mg/dL (0.0-1.0); Blood Urea Nitrogen 36 mg/dL (9-16); Calcium 9.7 mg/dL (8.4-10.2); Carbon Dioxide 26 mmol/L (22-29); Chloride 101 mmol/L (96-108); Cholesterol 216 mg/dL (<200); Estimated Glomerular Filt Rate 39; Glucose Fasting 164 mg/dL (60-99); HDL Cholesterol 42 mg/dL (>40); Iron 89 mcg/dL (45-160); LDL Cholesterol Calculated 120 mg/dL (<100); Percent Iron Saturation 36 % (15-50); Potassium 3.9 mmol/L (3.3-5.1); Sodium 138 mmol/L (135-145); Total Iron Binding Capacity 247 mcg/dL (228-428); Total Protein 8.1 g/dL (6.5-8.0); Triglycerides 274 mg/dL (<150); Unsaturated Iron Binding 158 ug/dL
[2023-10-16 11:31] LABS: Creatinine Urine 288.89 mg/dL
[2023-10-16 11:40] LABS: Protein/Creatinine Ratio, Ur 0.79 (<0.2); Total Protein Urine Random 229 mg/dL (<12)
[2023-10-16 11:41] LABS: Microalbum/Creatinine Ratio Ur 582.9 ug/mg cr (<30)
[2023-10-16 11:47] LABS: Ferritin 742 ng/mL (20-250)
[2023-10-18 22:58] LABS: IgA 382 mg/dL (47-310); IgG 1325 mg/dL (600-1640); IgM 126 mg/dL (50-300)
== END 2023-10-16 10:05 | disposition home or self-care (01) ==
LOC: HO.LAB 10:04
PROVIDERS: Absent Provider Nurse Practitioner Family; PCP Nurse Practitioner Family; Visit Provider Internal Medicine Nephrology
DX: E10.65 Type 1 diabetes mellitus with hyperglycemia (principal); R31.29 Other microscopic hematuria; D64.9 Anemia, unspecified; E78.5 Hyperlipidemia, unspecified
CPT/HCPCS: 36415; 80053; 80061; 81001; 82043; 82310; 82570; 82728; 82784; 83540; 84156; 84520; 85025; 85045; 86334; 87086; 88112

== ENCOUNTER 2023-10-17 10:54 | Outpatient (AMB) | payer OTHER, SELFPAY ==
[2023-10-17 11:00] VITALS: BP 130/80; PULSE 113; O2SAT 99; BMI 39.3
--- NOTE | 2023-10-17 11:00 | HO.NEPHOV ---
Vital Signs 10/17/23 11:00 Height 6 ft 4 in Weight 322 lb 8 oz BMI 39.3 BP 130/80 Blood Pressure Location Lt brachial Position Sitting Pulse 113 H Pulse Source Pulse Oximeter Pulse Oximetry (%) 99 Oxygen Delivery Method Room Air Intake Visit Reasons: CKD/ 3 weeks fu/ Conf Animal Services Officer Required: No Accompanied by: Self / Same As Patient Allergies No Known Allergies Allergy (Verified 10/17/23 11:03) HPI Comments Details: Mr. Solo was seen for CKD, proteinuria and hypertension on a backdrop of diabetes mellitus. He denies any diabetic retinopathy or neuropathy. His hemoglobin A1c has gone high. He has dyslipidemia and is on medications. He has lost some weight. He has no pedal edema on Chlorthalidone. He has not had any coronary artery disease, congestive heart failure, CVA, carotid stenosis, peripheral arterial disease or known renal artery stenosis. He does not take any excessive nonsteroidal anti-inflammatory medications. His recent renal ultrasound showed a renal cyst as well as bilateral renal calculi. He has not known to have any prostatic issues. He has not had any hospitalizations for urinary tract infections as a child. He denies epistaxis, recurrent sinusitis, sore throat, recent antibiotic intake, hematuria, sensorineural deafness. His serum creatinine has gone up to 1.86 PFSH Medical History Amputation of left great toe Osteomyelitis of left foot Sepsis Osteomyelitis of foot Dyslipidemia Low vitamin B12 level Low vitamin D level Chronic kidney disease, stage 3 Type 1 diabetes mellitus with hyperglycemia Surgical History History of amputation of toe Family History Father Diabetes Mother Diabetes Social History Household Members: Family Housing: House Patient Tobacco Use Status: Former Tobacco user e-Cigarette/Vaping Use: Never Used service: No Current occupational status: employed Cognitive needs: No Hearing needs: No Vision needs: Yes Physical Exam Vital Signs: Last Vital Signs Pulse 113 H 10/17/23 11:00 BP 130/80 10/17/23 11:00 Pulse Ox 99 10/17/23 11:00 Oxygen Delivery Method Room Air 10/17/23 11:00 BMI result Body Mass Index 39.3 Const General: comfortable and no acute distress Orientation/consciousness: patient oriented x3 HEENT Head: Yes normocephalic Mouth: Normal oral and palatal mucosa present Eyes EOM: EOMs intact bilaterally Neck Neck: Yes supple Resp Auscultation: clear to auscultation bilaterally Cardio Jugular venous distension: no JVD Rate: regular rate GI Palpation (GI): Soft to palpation Auscultation: normal bowel sounds General: Yes no CVA tenderness Back/Spine/Pelvis Back: no CVA tenderness Skin General skin exam: no rashes or lesions noted Neuro General: patient oriented x3 and moves all extremities Extrem General: Yes no pedal edema Results Reviewed Nephrology Results: Hgb 11.8 g/dl (14.0-18.0) L 10/16/23 WBC 7.6 X10*3/uL (4.8-10.8) 10/16/23 Plt Count 277 X10*3/uL (160-400) 10/16/23 Sodium 138 mmol/L (135-145) 10/16/23 Potassium 3.9 mmol/L (3.3-5.1) 10/16/23 Chloride 101 mmol/L (96-108) 10/16/23 Carbon Dioxide 26 mmol/L (22-29) 10/16/23 BUN 36 mg/dL (9-16) H 10/16/23 Creatinine 1.86 mg/dL (0.5-1.4) H 10/16/23 Calcium 9.7 mg/dL (8.4-10.2) 10/16/23 Urine Protein 300 (3+) mg/dL (Neg-Trace) H 10/16/23 Urine Creatinine 292.80 mg/dL 10/16/23 Protein/Creatinin Ratio 0.79 (<0.2) H 10/16/23 Assessment & Plan Assessment & Plan (1) Diabetic nephropathy: Code(s): E11.21 - Type 2 diabetes mellitus with diabetic nephropathy Category: Medical Qualifiers: Diabetes mellitus type: type 2 Qualified Code(s): E11.21 - Type 2 diabetes mellitus with diabetic nephropathy (2) CKD stage 3 secondary to diabetes: Code(s): E11.22 - Type 2 diabetes mellitus with diabetic chronic kidney disease; N18.30 - Chronic kidney disease, stage 3 unspecified Category: Medical (3) Renal calculus: Code(s): N20.0 - Calculus of kidney Category: Medical (4) Renal cyst: Code(s): N28.1 - Cyst of kidney, acquired Category: Medical (5) Chronic kidney disease, stage 3: Code(s): N18.30 - Chronic kidney disease, stage 3 unspecified Category: Medical Qualifiers: Chronic kidney disease stage 3 subtype: stage 3a (GFR 45-59) Qualified Code(s): N18.31 - Chronic kidney disease, stage 3a (6) Hypertension: Code(s): I10 - Essential (primary) hypertension Category: Medical Qualifiers: Hypertension type: primary hypertension Qualified Code(s): I10 - Essential (primary) hypertension Plan Mr. Solo has mild LAURA likely from diuresis. Differential diagnosis includes progression of his diabetic renal disease. He is at risk for secondary FSGS given his BMI. He is on fenofibrate which I asked him to hold for now. He has been on amlodipine which has been discontinued due to gingival hyperplasia. He is on Avapro which I reduced the dose to 75 mg and reduced his Chlorthalidone to every other day, given recent rise in serum creatinine. I asked him to cut back sodium in the diet and aim for significant weight loss. He will be a candidate for Farxiga which I plan to initiate with time. We may have to hold his ARB as well if his serum creatinine rises. He may need renal biopsy. I encouraged him to avoid nonsteroidal anti-inflammatories and maintain good hydration. He can cut back meat in the diet along with sodium especially given renal calculi. He should have more fruits and vegetables and increase citrate in the diet. I plan to do a 24 urine collection for stone screen with time. We will check his serum uric acid at the next visit. His blood pressure needs to be maintain a goal. I have ordered follow-up blood work and plan to see him in a couple of weeks for continued care. Answered all questions. Follow-up appointment given Orders: Orders Creatinine Today E11.21 - Type 2 diabetes mellitus with diabetic nephropathy, E11.22 - Type 2 diabetes mellitus with diabetic chronic kidney disease, N18.30 - Chronic kidney disease, stage 3 unspecified, N20.0 - Calculus of kidney, N28.1 - Cyst of kidney, acquired Electrolytes Today E11.21 - Type 2 diabetes mellitus with diabetic nephropathy, E11. - Type 2 diabetes mellitus with diabetic chronic kidney disease, N18.30 - Chronic kidney disease, stage 3 unspecified, N20.0 - Calculus of kidney, N28.1 - Cyst of kidney, acquired Blood Urea Nitrogen Today E11. - Type 2 diabetes mellitus with diabetic nephropathy, E11.22 - Type 2 diabetes mellitus with diabetic chronic kidney disease, N18.30 - Chronic kidney disease, stage 3 unspecified, N20.0 - Calculus of kidney, N28.1 - Cyst of kidney, acquired Coding Level of Care Code Est Pt Level 4 (61532) Diagnoses Diabetic nephropathy associated with type 2 diabetes mellitus E11. Diabetes mellitus type: type 2 CKD stage 3 secondary to diabetes E11.; N18.30 Renal calculus N20.0 Renal cyst N28.1 Stage 3a chronic kidney disease N18.31 Chronic kidney disease stage 3 subtype: stage 3a (GFR 45-59) Primary hypertension I10 Hypertension type: primary hypertension
== END 2023-10-17 11:20 | disposition home or self-care (01) ==
PROVIDERS: PCP Nurse Practitioner Family; Visit Provider Internal Medicine Nephrology
DX: E11.21 Type 2 diabetes mellitus with diabetic nephropathy (principal); E11.22 Type 2 diabetes mellitus with diabetic chronic kidney disease; N18.30 Chronic kidney disease, stage 3 unspecified; N20.0 Calculus of kidney; N28.1 Cyst of kidney, acquired; N18.31 Chronic kidney disease, stage 3a; I10 Essential (primary) hypertension
CPT/HCPCS: 99214

== ENCOUNTER → 2023-10-17 10:54 | Outpatient (BNVA) | payer OTHER, SELFPAY | PROVIDERS: PCP Nurse Practitioner Family; Visit Provider Internal Medicine Nephrology | DX: E11.21 Type 2 diabetes mellitus with diabetic nephropathy (principal); E11.22 Type 2 diabetes mellitus with diabetic chronic kidney disease; I12.9 Hypertensive chronic kidney disease with stage 1 through stage 4 chronic kidney disease, or unspecified chronic kidney disease; N18.31 Chronic kidney disease, stage 3a; N28.1 Cyst of kidney, acquired; N20.0 Calculus of kidney | CPT/HCPCS: 99212 ==

== ENCOUNTER 2023-11-01 08:59 | Outpatient (AMB) | payer OTHER, SELFPAY ==
--- NOTE | 2023-11-01 09:07 | A.OFFVIS_ITS ---
Vital Signs 11/01/23 09:08 Height 6 ft 4 in Weight 319 lb 10.724 oz BMI 38.9 BP 136/88 Blood Pressure Location Rt brachial Position Sitting Pulse 87 Pulse Source Pulse Oximeter Intake Visit Reasons: DM1/CONFIRMED Intake Note: New Patient presents today to established treatment for Diabetes Type 1: Most recent Eye Exam: DUE Most recent Podiatry Exam: Has an appt on 11/20/2023 Most recent HbA1c: 9.1%, 11/01/2023 Random Glucose- 195mg/dL, Today Spanish Instructor Required: No Accompanied by: Self / Same As Patient Allergies No Known Allergies Allergy (Verified 11/01/23 09:07) HPI Comments Details: Patient is 47 yo male with DM type 1 diagnosed in May of 2017 a presents for continued management Patient was last seen by Dr. Crews 04/14. Past medical history:DM1, CKD stage 3, hyperlipidemmia. Micro and macrovascular complications: + nephropathy, +Neuropathy, hx of o steomyelititis with amputation onf 2nd & 3rd toe of right foot. Diabetes medications:Toujeo 68 units. Admelog 18 units prior to breakfast and lunch and 28 units prior to dinner. Plus correction scale of plus 2 units for blood sugars over 200, +4 units for blood sugars over 250 and plus 6 units for blood sugars over 300. Hyperglycemia: + urinary frequency (drinks a gallon of water daily), denies nocturia, + polydypsia Last eye exam: 05/2021 - ou no retinopathy. Needs to make appt [facility] Medical History Amputation of left great toe Osteomyelitis of left foot Sepsis Osteomyelitis of foot Dyslipidemia Low vitamin B12 level Low vitamin D level Chronic kidney disease, stage 3 Type 1 diabetes mellitus with hyperglycemia Surgical History History of amputation of toe Family History Father Diabetes Mother Diabetes Social History Household Members: Family Housing: House Patient Tobacco Use Status: Former Tobacco user e-Cigarette/Vaping Use: Never Used service: No Current occupational status: employed Cognitive needs: No Hearing needs: No Vision needs: Yes Physical Exam Vital Signs: Last Vital Signs Pulse 87 11/01/23 09:08 BP 136/88 11/01/23 09:08 BMI result Body Mass Index 38.9 Results Reviewed Results Reviewed: Laboratory Last Values Glucose (Clinic) 195 mg/dL (60-115) H 11/01/23 09:15 Assessment & Plan Assessment & Plan (1) Type 1 diabetes mellitus with hyperglycemia: Code(s): E10.65 - Type 1 diabetes mellitus with hyperglycemia Category: Medical Plan: Poor diabetic control with patient with worsening kidney disease. We discussed at length the absolute need to get his sugars under good control. He has interested in the ilet insulin pump with G7 sensor. He is He will meet with the senior security analyst for pre pump education. If interested in proceeding forward,he could start on a G7 at that visit. In the meantime we will change his Toujeo to degludec as this may provide a more consistent basal coverage for him. Degludec U 200 72 units. Admelog 18 units prior to breakfast and lunch and 28 units prior to dinner. Plus correction scale of plus 2 units for blood sugars over 200, +4 units for blood sugars over 250 and plus 6 units for blood sugars over 300. The patient was counseled to always carry a source of sugar and on the rule of 15's: Take 3 glucose tablets and repeat again in 15 minutes if blood sugar is not in normal range. Continue to repeat every 15 minutes until blood sugar is normal. The patient was counseled to achieve a target A1C of 7% (154 avg) the fasting blood sugars should be 90-130 in the morning and less than 180 two hours after meals. Risks of uncontrolled diabetes discussed with the patient. Orders: Orders AMB Hemoglobin A1c Today E11.9 - Type 2 diabetes mellitus without complications Coding Level of Care Code Est Pt Level 5 (72589) Complex EM visit Add On G2211 Diagnoses Type 1 diabetes mellitus with hyperglycemia E10.65 Time Spent (min) 60 Comment Time spent reviewing labs/previous provider notes, face to face, chart documentation
[2023-11-01 09:08] VITALS: BP 136/88; PULSE 87; BMI 38.9
[2023-11-01 09:19] LABS: Glucose, Whole Blood 195 mg/dL (60-115)
== END 2023-11-01 10:09 | disposition home or self-care (01) ==
PROVIDERS: PCP Nurse Practitioner Family; Visit Provider Nurse Practitioner Adult Health
DX: E10.65 Type 1 diabetes mellitus with hyperglycemia (principal)
CPT/HCPCS: 99215; 99417; G2211

== ENCOUNTER → 2023-11-01 08:59 | Outpatient (BNVA) | payer OTHER, SELFPAY | PROVIDERS: PCP Nurse Practitioner Family; Visit Provider Nurse Practitioner Adult Health | DX: E10.65 Type 1 diabetes mellitus with hyperglycemia (principal) | CPT/HCPCS: 82947; 99212 ==

== ENCOUNTER 2023-11-05 07:22 | Outpatient (AMB) | payer OTHER, SELFPAY ==
--- NOTE | 2023-11-05 07:05 | MHC.PC.OV ---
Intake Visit Reasons: reschedual from 10/23 Allergies No Known Allergies Allergy (Verified 11/05/23 07:21) Medication List - Last Reconciled 11/05/23 by ELISA [place] blood sugar diagnostic As directed chlorthalidone 12.5 mg (1/2 x 25 mg) PO DAILY cholecalciferol (vitamin D3) 50 mcg PO DAILY cyanocobalamin (vitamin B-12) 1,000 mcg IM .Qmonthly ezetimibe 10 mg PO DAILY fenofibrate 54 mg PO DAILY flash glucose scanning reader (Tamir BiotechnologyStyle Solo 2 [place]) As directed flash glucose sensor (FreeStyle Solo 2 Sensor kit) As directed every 2 weeks folic acid 0.8 mg PO DAILY insulin glargine U-300 conc (Toujeo Max U-300 SoloStar) 68 units (0.2267 mL) subcut DAILY insulin lispro Inject 18 units before breakfast and lunch and 24 units before supper subcutaneously; irbesartan 150 mg PO DAILY ketoconazole 2% 1 appl topical DAILY 30 days lancets ([place] Lancets) As directed pen needle, diabetic (BD Ultra-Fine Cassandra Pen Needle) As directed pravastatin 80 mg PO DAILY 90 days Tobacco use date assessed: 05/14/23 Dental Screening Dental Screen Date: 05/14/23 HPI reschedual from 10/23 HPI Details Seeing endo and nephrology (Hx of DM 1 and CKD stage 3). Pt reports feeling well, has upcoming appts with endo and nephrology scheduled. Will cont to monitor labs (PSA added). Weight loss hein, pt is scheduled to meet with a quality assurance qa lab technician. Encouraged he make this appt, and explained the relevance behind a good diet. B12 def: taking 1000mcg of b12 Qmonthly, will cont to monitor levels PFSH Medical History Amputation of left great toe Osteomyelitis of left foot Sepsis Osteomyelitis of foot Dyslipidemia Low vitamin B12 level Low vitamin D level Chronic kidney disease, stage 3 Type 1 diabetes mellitus with hyperglycemia Surgical History History of amputation of toe Family History Father Diabetes Mother Diabetes Social History Household Members: Family Housing: House Patient Tobacco Use Status: Former Tobacco user e-Cigarette/Vaping Use: Never Used service: No Current occupational status: employed Cognitive needs: No Hearing needs: No Vision needs: Yes Questionnaire Thrive Questionnaire Date Thrive assessed: 05/14/23 DENA-7 AMB Questionnaire DENA-7 Date DENA - 7 assessed: 05/14/23 Source: Developed by Drs. Karthik Christie, Priya Winchester, Terence Jo and colleagues, with an educational meri from [facility]. Physical exam (Primary Care) Tobacco/Smoking Status: Tobacco use Status Tobacco use date assessed 05/14/23 11/05/23 07:06 Patient Tobacco Use Status Former Tobacco user 11/05/23 07:06 e-Cigarette/Vaping Use Never Used 11/05/23 07:06 Thrive Assessment: Date of Thrive Assessment Date Thrive assessed 05/14/23 11/05/23 07:06 Psych Appearance: grossly normal Mental Status: mental status grossly normal Speech and movement: Normal speech and movement present Affect: normal affect Attitude: cooperative Thought process: Normal thought process present Thought content: Normal thought content present Telehealth Telehealth Telehealth Platform: [employer] Location of provider rendering services: practice address Location of patient: address on file Patient Identification confirmed using: Name, : Yes Telehealth method: video Patient verbally consented to treatment: Yes Patient verbally consented to billing insurance company: Yes Patient informed of any privacy concerns related to visit: Yes Minutes spent on Phone/Video with Pt.: 10 Assessment and Plan Assessment & Plan (1) Type 1 diabetes mellitus with hyperglycemia: Code(s): E10.65 - Type 1 diabetes mellitus with hyperglycemia Plan: cont to follow up with endo (2) Chronic kidney disease, stage 3: Code(s): N18.30 - Chronic kidney disease, stage 3 unspecified Qualifiers: Chronic kidney disease stage 3 subtype: stage 3a (GFR 45-59) Qualified Code(s): N18.31 - Chronic kidney disease, stage 3a Plan: cont to follow up with nephrology (3) Screening PSA (prostate specific antigen): Code(s): Z12.5 - Encounter for screening for malignant neoplasm of prostate (4) Obesity: Code(s): E66.9 - Obesity, unspecified Plan: following up with nephrology (5) Low vitamin B12 level: Code(s): E53.8 - Deficiency of other specified B group vitamins Plan: will check levels Orders: Orders Comprehensive [place]. Panel Fast Today E10.65 - Type 1 diabetes mellitus with hyperglycemia, N18.31 - Chronic kidney disease, stage 3a Prostate Specific Antigen Scr Today Z12.5 - Encounter for screening for malignant neoplasm of prostate Vitamin B12 and Folate Today E53.8 - Deficiency of other specified B group vitamins Complete Blood Count Auto Diff Today E10.65 - Type 1 diabetes mellitus with hyperglycemia, N18.31 - Chronic kidney disease, stage 3a TSH reflex Free T4 Today E10.65 - Type 1 diabetes mellitus with hyperglycemia, N18.31 - Chronic kidney disease, stage 3a UA CC w/rflx Micro + Cult Today E10.65 - Type 1 diabetes mellitus with hyperglycemia, N18.31 - Chronic kidney disease, stage 3a Lipid Panel Today E10.65 - Type 1 diabetes mellitus with hyperglycemia, N18.31 - Chronic kidney disease, stage 3a Coding Level of Care Code Tele Est Pt Level 3 (15380) Diagnoses Type 1 diabetes mellitus with hyperglycemia E10.65 Stage 3a chronic kidney disease N18.31 Chronic kidney disease stage 3 subtype: stage 3a (GFR 45-59) Screening PSA (prostate specific antigen) Z12.5 Obesity E66.9 Low vitamin B12 level E53.8
== END 2023-11-05 09:44 | disposition home or self-care (01) ==
PROVIDERS: PCP Nurse Practitioner Family; Visit Provider Nurse Practitioner Family
DX: E10.65 Type 1 diabetes mellitus with hyperglycemia (principal); N18.31 Chronic kidney disease, stage 3a; Z12.5 Encounter for screening for malignant neoplasm of prostate; E66.9 Obesity, unspecified; E53.8 Deficiency of other specified B group vitamins
CPT/HCPCS: 99213

== ENCOUNTER 2024-01-17 08:34 | Outpatient (REF) | payer OTHER, SELFPAY ==
[2024-01-17 09:47] LABS: MANUAL DIFF FLAG NO
[2024-01-17 09:56] LABS: Basophils Percent Auto 0.5 % (0-2); Eosinophils Absolute Auto 0.1 X10*3/uL (0.0-0.4); Eosinophils Percent Auto 1.1 % (0-4); Hematocrit 36.4 % (42.0-52.0); Hemoglobin 12.2 g/dl (14.0-18.0); Imm Gran Abs Auto 0.04 X10*3/uL (0.00-0.03); Imm Gran Pct Auto 0.5 % (0.0-0.4); Lymphocytes Absolute Auto 2.3 X10*3/uL (1.2-4.9); Lymphocytes Percent Auto 25.8 % (20-40); Mean Corpuscular HGB Conc 33.5 g/dl (31.0-36.0); Mean Corpuscular Hemoglobin 28.4 pg (27.0-33.0); Mean Corpuscular Volume 84.8 fL (80.0-98.0); Mean Platelet Volume 9.1 fL (9.4-12.4); Monocytes Absolute Auto 0.8 X10*3/uL (0.1-1.2); Monocytes Percent Auto 9.1 % (2-11); Neutrophils Absolute Auto 5.6 x10*3/uL (2.0-8.3); Platelet Count 253 X10*3/uL (160-400); Red Blood Count 4.29 X10*6/uL (4.60-5.80); Red Cell Distribution Width 14.1 % (11.0-16.0); White Blood Count 8.8 X10*3/uL (4.8-10.8)
[2024-01-17 10:13] LABS: B Type Natriuretic Peptide 10 pg/mL (<100)
[2024-01-17 10:35] LABS: Alanine Aminotransferase 40 U/L (0-40); Albumin Level 4.2 g/dL (3.5-5.0); Alkaline Phosphatase 54 U/L (39-117); Anion Gap 15 (12-20); Aspartate Amino Transferase 31 U/L (5-37); Bilirubin Total 0.5 mg/dL (0.0-1.0); Blood Urea Nitrogen 35 mg/dL (9-16); Calcium 9.8 mg/dL (8.4-10.2); Carbon Dioxide 25 mmol/L (22-29); Chloride 104 mmol/L (96-108); Cholesterol 220 mg/dL (<200); Estimated Glomerular Filt Rate 45; Glucose Fasting 152 mg/dL (60-99); HDL Cholesterol 50 mg/dL (>40); LDL Cholesterol Calculated 121 mg/dL (<100); Potassium 3.8 mmol/L (3.3-5.1); Sodium 140 mmol/L (135-145); Total Protein 7.7 g/dL (6.5-8.0); Triglycerides 245 mg/dL (<150)
[2024-01-17 10:55] LABS: TSH reflex Free T4 1.59 uIU/mL (0.32-4.0)
[2024-01-17 11:04] LABS: Folate 9.2 ng/mL (> or = 4.0); Prostate Specific Antigen Scr 0.42 ng/mL (<0.05-4.0); Vitamin B12 735 pg/mL (200-900)
[2024-01-17 11:14] LABS: Appearance Urine Clear; Color Urine Yellow; Glucose Urine UA Negative (Negative); Leukocyte Esterase Urine Negative (Negative); Nitrite Urine Negative (Negative); UMIC TRIGGER UACC YES; Urine Blood Trace (Negative); Urine Ketones Negative (Negative); Urine Protein 300 (3+) mg/dL (Neg-Trace)
[2024-01-17 11:25] LABS: Bacteria Urine None Seen (None Seen); RBC Urine 0-2 /HPF (0-2); Squamous Epithelial Cell Urine 0-2 /HPF (0-2); WBC Urine 0-5 /HPF (0-5)
[2024-01-18 15:33] LABS: C Peptide 1.71 ng/mL (0.80-3.85)
[2024-01-27 00:33] LABS: Islet Cell Antibody Screen NEGATIVE (NEGATIVE)
== END 2024-01-17 08:35 | disposition home or self-care (01) ==
LOC: HO.LAB 08:34
PROVIDERS: Absent Provider Internal Medicine Nephrology; PCP Nurse Practitioner Family; Visit Provider Nurse Practitioner Adult Health
DX: E10.65 Type 1 diabetes mellitus with hyperglycemia (principal); N18.31 Chronic kidney disease, stage 3a; Z12.5 Encounter for screening for malignant neoplasm of prostate; E53.8 Deficiency of other specified B group vitamins
CPT/HCPCS: 36415; 80053; 80061; 81001; 81003; 82607; 82746; 82947; 83880; 84153; 84443; 84681; 85025; 86341; 99212

== ENCOUNTER 2024-01-17 08:34 | Outpatient (AMB) | payer OTHER, SELFPAY ==
--- NOTE | 2024-01-17 08:36 | A.OFFVIS_ITS ---
Vital Signs 01/17/24 08:37 Height 6 ft 4 in Weight 319 lb 10.724 oz BMI 38.9 BP 134/78 Blood Pressure Location Rt brachial Position Sitting Pulse 87 Pulse Source Pulse Oximeter Intake Visit Reasons: T1DM/LVM Intake Note: Patient presents today for a follow-up on Type 1 Diabetes Mellitus: Most recent Eye Exam: DUE Most recent Podiatry Exam: 11/20/2023 & 12/27/2023 Most recent HbA1c: 9.1%, 11/01/2023 Random Glucose- 145mg/dL, Today Automotive Consultant Required: No Accompanied by: Self / Same As Patient Allergies No Known Allergies Allergy (Verified 11/05/23 07:21) HPI Comments Details: Patient is 47 yo male with DM type 1 diagnosed in May of 2017 a presents for continued management. The patient was last seen by myself in October 2023. At that time a prescription was sent for Tresiba which he did not receive. No prior testing cpeptide/insulin antibodies avail in EHR. The patient is not aware if this was tested when he was followed outside [facility]. Past medical history:DM1, CKD stage 3, hyperlipidemmia. Micro and macrovascular complications: + nephropathy, +Neuropathy, hx of osteomyelititis with amputation of 2nd & 3rd toe of right foot. Diabetes medications: Toujeo 72 units. Admelog 18 units prior to breakfast and lunch and 28 units p rior to dinner. Plus correction scale of plus 2 units for blood sugars over 200, +4 units for blood sugars over 250 and plus 6 units for blood sugars over 300. He is on a Solo 2 average 205 very high 16%, high 53%, target 31%, numbers trending upward throughout the day the farther he gets from Lantus dosing. Hyperglycemia: + urinary frequency (drinks a gallon of water daily), denies nocturia, + polydypsia Has HLD: on statin and zetia, fenofibrate on hold per nephrology Last eye exam: 05/2021 - ou no retinopathy. Needs to make appt Sees opth in [place] which he will contact. Positive for neuropathy. He has numbness and tingling He sees podiatry on a regular basis and he will schedule an appointment. He checks his feet daily never walking barefooted. He has several amputated toes from previous infections. Nephropathy:he sees Dr. Mckeon @[facility] and has a f/u next month 01/17/24: eGFR 45 (up from previous 39), 10/16/23P: microalbumin 1707 [facility] Medical History Amputation of left great toe Osteomyelitis of left foot Sepsis Osteomyelitis of foot Dyslipidemia Low vitamin B12 level Low vitamin D level Chronic kidney disease, stage 3 Type 1 diabetes mellitus with hyperglycemia Surgical History History of amputation of toe Family History Father Diabetes Mother Diabetes Social History Household Members: Family Housing: House Patient Tobacco Use Status: Former Tobacco user e-Cigarette/Vaping Use: Never Used service: No Current occupational status: employed Cognitive needs: No Hearing needs: No Vision needs: Yes Physical Exam Vital Signs: Last Vital Signs Pulse 87 01/17/24 08:37 BP 134/78 01/17/24 08:37 BMI result Body Mass Index 38.9 Const Other: Absence of Cushingoid features. Absence of acromegalic features. Neck exam reveals nl size thyroid about 15 gms. No thyroid nodules palpable. No carotid bruits present. Lungs CTA. Heart S1 S2, Reg R/R. No M/R G. Skin exam reveals absence of vitiligo or acanthosis nigricans. No edema Visual exam of foot performed. No ulcerations or open lesions. No inter digit maceration or fissuring. No onychomycosis, no callouses. Sensation not present to monofilament exam. Vibratory sensation is absent with 128 Hz tuning fork. Multiple well healed toe amputations. Results Reviewed Results Reviewed: Laboratory Last Values Glucose (Clinic) 149 mg/dL (60-115) H 01/17/24 08:41 Laboratory Tests 10/16/23 01/17/24 10:25 09:46 Creatinine 1.64 H Estimated GFR 45 LDL Cholesterol, Calc 121 H TSH 1.59 Urine Creatinine 288.89 Urine Microalbumin 1707.0 Assessment & Plan Assessment & Plan (1) Type 1 diabetes mellitus with hyperglycemia: Code(s): E10.65 - Type 1 diabetes mellitus with hyperglycemia Category: Medical Plan: The patient is a 48-year-old male diagnosed with the diabetes in 2018. No prior testing has been done with C-peptide/insulin antibodies we will he will go to the lab today to confirm his diagnosis. Body type type appears more type 2 than type 1. Results will take 2 weeks to come back but can consider adding other agents besides insulin if warranted. We will send prescription for Tresiba and he will increase his insulin doses. New dose: TRESIBA: 80 units. Admelog 22 units prior to breakfast and lunch 28 units prior to dinner. correction scale starting at 150: 150-200 2 units 201-250 4 units over 250 6 units Prescription will be sent for new glucometer, test strips some land sats in the event he is not able to use freestyle 2. Orders: Orders B Type Natriuretic Peptide Today E10.65 - Type 1 diabetes mellitus with hyperglycemia Islet Cell Antibody Scrn/Titer Today E10.65 - Type 1 diabetes mellitus with hyperglycemia C Peptide Today E10.65 - Type 1 diabetes mellitus with hyperglycemia Medications: New insulin degludec (Tresiba FlexTouch U-200 insulin) 80 units (0.4 mL) subcut DAILY 30 days 15 mL 11RF E10.65 - Type 1 diabetes mellitus with hyperglycemia blood sugar diagnostic (FreeStyle Lite Strips) As directed tid prn sensor failure, confirm glucose 100 ea 1RF E10.65 - Type 1 diabetes mellitus with hyp erglycemia lancets (FreeStyle Lancets) 3 times daily if sensor is not available or to confirm readings 100 ea 1RF FreeStyle [place] (blood-glucose meter) As directed freestyle lite meter 1 ea 0RF NS Changed From irbesartan 150 mg PO DAILY 90 tabs 1RF E11.21 - Type 2 diabetes mellitus with diabetic nephropathy To irbesartan 75 mg (1/2 x 150 mg) PO DAILY 90 days 45 tabs 1RF E11.21 - Type 2 diabetes mellitus with diabetic nephropathy From insulin lispro Inject 18 units before breakfast and lunch and 24 units before supper subcutaneously; 15 mL 3RF E10.65 - Type 1 diabetes mellitus with hyperglycemia To insulin lispro 22 units before breakfast and lunch, 32 units before supper Plus scale: 150-200 +2units, 201-250: +4 units, over 250 +6 units 30 days 30 mL 3RF MDD 94 units E10.65 - Type 1 diabetes mellitus with hyperglycemia Discontinued insulin glargine U-300 conc (Toujeo Max U-300 SoloStar) Discontinued Reason: Doctor's Order 68 units (0.2267 mL) subcut DAILY 6 mL 4RF E10.65 - Type 1 diabetes mellitus with hyperglycemia On Hold fenofibrate Hold Comment: Doctor's Order 54 mg PO DAILY 90 tabs 1RF Patient Instructions: The patient was counseled to achieve a target A1C of 7% (154 avg). Fasting blood sugars should be 90-130 in the morning and less than 180 two hours after meals. Reviewed the relationship between poor diabetic control and the developement of complications The patient was counseled to wear closed toe shoes, never walk barefooted and to inspect the feet daily. For any signs of infection or open wound patient should notify PCP or go to urgent care. Low sugar prevention and treatment Coding Level of Care Code Est Pt Level 5 (28369) Complex EM visit Add On G2211 Diagnoses Type 1 diabetes mellitus with hyperglycemia E10.65 Time Spent (min) 50 Comment Time spent reviewing labs/provider notes, face to face, chart doc
[2024-01-17 08:37] VITALS: BP 134/78; PULSE 87; BMI 38.9
[2024-01-17 08:45] LABS: Glucose, Whole Blood 149 mg/dL (60-115)
== END 2024-01-17 09:07 | disposition home or self-care (01) ==
PROVIDERS: PCP Nurse Practitioner Family; Visit Provider Nurse Practitioner Adult Health
DX: E10.65 Type 1 diabetes mellitus with hyperglycemia (principal)
CPT/HCPCS: 99215; G2211

== ENCOUNTER 2024-03-18 08:23 | Outpatient (AMB) | payer OTHER, SELFPAY ==
[2024-03-18 08:29] VITALS: BP 120/80; PULSE 96; BMI 38.7
--- NOTE | 2024-03-18 08:29 | A.OFFVIS_ITS ---
Vital Signs 03/18/24 08:29 Height 6 ft 4 in Weight 318 lb BMI 38.7 BP 120/80 Blood Pressure Location Lt brachial Position Sitting Pulse 96 Pulse Source Pulse Oximeter Intake Visit Reasons: T1DM/CONF Intake Note: Patient presents today for a follow-up on Type 1 Diabetes Mellitus: Most recent Eye Exam: DUE Most recent Podiatry Exam: 11/20/2023 & 12/27/2023 Most recent HbA1c: 7.5%, 03/18/2024 Random Glucose- 139 mg/dL, Today Public Interviewer Required: No Accompanied by: Self / Same As Patient Allergies No Known Allergies Allergy (Verified 11/05/23 07:21) HPI Comments Details: Patient is 47 yo male with DM type 1 diagnosed in May of 2017 a presents for continued management. The patient was last seen by myself 01/02/2026 at which time he was started on Tresiba. 12/2023 C-peptide 1.71 islet cell antibodies negative confirming he has type 2 Past medical history:DM1, CKD stage 3, hyperlipidemmia. Micro and macrovascular complications: + nephropathy, +Neuropathy, hx of osteomyelititis with amputation of 2nd & 3rd toe of right foot. Diabetes medications: Tresiba 80 units Admelog 22 units prior to breakfast and lunch and 28 units prior to dinner. Plus correction scale of plus 2 units for blood sugars over 200, +4 units for blood sugars over 250 and plus 6 units for blood sugars over 300. Trulicity 0.75 weekly Freestyle makayla sensor 3 average glucose: 139 14 day continuous glucose sensor report reviewed Glucose Management indicator 6.6 % TIme in ranges: One % very high (above 250) 16 % high (181-250) 78 % in range (70-180] 5 % low (69-55) 0 % very low (below 54) 32 %Glucose variability (target <36%) Interpretation of CGMS [numbers in good range ] Hyperglycemia: + urinary frequency (drinks a gallon of water daily), denies nocturia, + polydypsia Has HLD: on statin and zetia, fenofibrate on hold per nephrology Last eye exam: 05/2021 - ou no retinopathy. Needs to make appt Sees opth in [place] which he will contact. Positive for neuropathy. He has numbness and tingling He sees podiatry on a regular basis and has appt today He checks his feet daily never walking barefooted. He has several amputated toes from previous infections. Nephropathy:he sees Dr. Mckeon @[facility] last seen 01/17/24: eGFR 45 (up from previous 39), 10/16/23P: microalbumin 1707 [facility] Medical History (Updated 03/18/24 @ 14:19 by Laurita Villegas NP) Diabetes mellitus type 2 with complications Amputation of left great toe Osteomyelitis of left foot Sepsis Osteomyelitis of foot Dyslipidemia Low vitamin B12 level Low vitamin D level Chronic kidney disease, stage 3 Surgical History History of amputation of toe Family History Father Diabetes Mother Diabetes Social History Household Members: Family Housing: House Patient Tobacco Use Status: Former Tobacco user e-Cigarette/Vaping Use: Never Used service: No Current occupational status: employed Cognitive needs: No Hearing needs: No Vision needs: Yes Physical Exam Vital Signs: Last Vital Signs Pulse 96 03/18/24 08:29 BP 120/80 03/18/24 08:29 BMI result Body Mass Index 38.7 Results AMB Hemoglobin A1c AMB Hemoglobin A1c 7.5 % Last Edit by SALOME Feliz on 03/18/24 09:22 Results Reviewed Results Reviewed: Laboratory Last Values Glucose (Clinic) 139 mg/dL (60-115) H 03/18/24 08:35 Hgb A1c (Clinic) 7.5 % (4.0-6.0) H 03/18/24 09:21 Assessment & Plan Assessment & Plan (1) Diabetes mellitus type 2 with complications: Code(s): E11.8 - Type 2 diabetes mellitus with unspecified complications Category: Medical Plan: Numbers are improving we will decrease Tresiba to 70 units and change short- acting insulin to 20 units t.i.d. along with increasing Trulicity to 1.5 The patient had an opportunity to ask questions regarding treatment plan. The patient expressed understanding and agreement with the above treatment plan. The patient is aware they should contact our office by phone for worsening glucose readings or for any low blood sugars which may warrant a change in diabetes medication. Compliance is encouraged with medications and any followup testing/consults which may have been ordered. Orders: Orders AMB Hemoglobin A1c Today E11.8 - Type 2 diabetes mellitus with unspecified complications Medications: Changed From insulin degludec (Tresiba FlexTouch U-200 insulin) 80 units (0.4 mL) subcut DAILY 30 days 15 mL 11RF E10.65 - Type 1 diabetes mellitus with hyperglycemia To insulin degludec (Tresiba FlexTouch U-200 insulin) 70 units (0.35 mL) subcut DAILY 30 days 12 mL 11RF E10.65 - Type 1 diabetes mellitus with hyperglycemia From dulaglutide (Trulicity) 0.75 mg (0.5 mL) subcut QWEEK 28 days 2 mL 6RF E11.8 - Type 2 diabetes mellitus with unspecified complications To dulaglutide (Trulicity) 1.5 mg subcut QWEEK 28 days 4 mL 6RF E11.8 - Type 2 diabetes mellitus with unspecified complications From insulin lispro 22 units before breakfast 32 units before supper Plus scale: 150-200 +2units, 201-250: +4 units, over 250 +6 units 30 days 30 mL 3RF MDD 94 units E10.65 - Type 1 diabetes mellitus with hyperglycemia To insulin lispro 20 units before lunch 20 units before supper Plus scale: 150-200 +2units, 201-250: +4 units, over 250 +6 units 30 days 30 mL 3RF MDD 56 E10.65 - Type 1 diabetes mellitus with hyperglycemia Patient Instructions: The patient was counseled to achieve a target A1C of 7% (154 avg). Fasting blood sugars should be 90-130 in the morning and less than 180 two hours after meals. Reviewed the relationship between poor diabetic control and the development of complications. Check your feet daily looking for any signs of infection, ulceration and seek medical attention if this occurs. Break in shoes gradually and do not wear open-toed shoes or walk barefooted. Carry a sugar source at all times Coding Level of Care Code Est Pt Level 4 (33094) Diagnoses Diabetes mellitus type 2 with complications E11.8 Time Spent (min) 35 Comment Time spent reviewing labs/provider notes, face to face, chart doc
[2024-03-18 08:40] LABS: Glucose, Whole Blood 139 mg/dL (60-115)
--- NOTE | 2024-03-18 08:50 | ...WebTmpl.AM.BPCHK ---
Intake Intake Visit Reasons: T1DM/CONF Allergies No Known Allergies Allergy (Verified 11/05/23 07:21) Vital Signs 03/18/24 08:29 Height 6 ft 4 in Weight 318 lb BMI 38.7 BP 120/80 Blood Pressure Location Lt brachial Position Sitting Pulse 96 Pulse Source Pulse Oximeter Coding
== END 2024-03-18 08:58 | disposition home or self-care (01) ==
PROVIDERS: PCP Nurse Practitioner Family; Visit Provider Nurse Practitioner Adult Health
DX: E11.8 Type 2 diabetes mellitus with unspecified complications (principal)
CPT/HCPCS: 99214

== ENCOUNTER → 2024-03-18 08:23 | Outpatient (BNVA) | payer OTHER, SELFPAY | PROVIDERS: PCP Nurse Practitioner Family; Visit Provider Nurse Practitioner Adult Health | DX: E10.22 Type 1 diabetes mellitus with diabetic chronic kidney disease (principal); E10.21 Type 1 diabetes mellitus with diabetic nephropathy; E10.40 Type 1 diabetes mellitus with diabetic neuropathy, unspecified; N18.30 Chronic kidney disease, stage 3 unspecified; E10.69 Type 1 diabetes mellitus with other specified complication; M86.9 Osteomyelitis, unspecified; E78.5 Hyperlipidemia, unspecified; Z79.4 Long term (current) use of insulin; Z89.421 Acquired absence of other right toe(s) | CPT/HCPCS: 82947; 83036; 99212 ==

== ENCOUNTER 2024-04-09 14:38 | Outpatient (AMB) | payer OTHER, SELFPAY ==
--- NOTE | 2024-04-09 14:29 | HO.NEPHOV ---
Vital Signs 04/09/24 14:31 Height 6 ft 4 in Intake Visit Reasons: R/S 03/14/24-Conf Dry Cleaning Manager Required: No Accompanied by: Self / Same As Patient Allergies No Known Allergies Allergy (Verified 04/09/24 14:30) HPI Comments Details: Mr. Solo was seen by [facility] for CKD, proteinuria and hypertension on a backdrop of diabetes mellitus. He denies any diabetic retinopathy or neuropathy. His hemoglobin A1c has improved. He has dyslipidemia and is on medications. He has lost some weight. He has no pedal edema on Chlorthalidone. He has not had any coronary artery disease, congestive heart failure, CVA, carotid stenosis, peripheral arterial disease or known renal artery stenosis. He does not take any excessive nonsteroidal anti-inflammatory medications. His recent renal ultrasound showed a renal cyst as well as bilateral renal calculi. He has not known to have any prostatic issues. He has not had any hospitalizations for urinary tract infections as a child. He denies epistaxis, recurrent sinusitis, sore throat, recent antibiotic intake, hematuria, sensorineural deafness. His last serum creatinine is 1.64 [facility] Medical History (Updated 03/18/24 @ 14:19 by Laurita Villegas NP) Diabetes mellitus type 2 with complications Amputation of left great toe Osteomyelitis of left foot Sepsis Osteomyelitis of foot Dyslipidemia Low vitamin B12 level Low vitamin D level Chronic kidney disease, stage 3 Surgical History History of amputation of toe Family History Father Diabetes Mother Diabetes Social History Household Members: Family Housing: House Patient Tobacco Use Status: Former Tobacco user e-Cigarette/Vaping Use: Never Used service: No Current occupational status: employed Cognitive needs: No Hearing needs: No Vision needs: Yes Review of Systems Const All systems reviewed & are unremarkable except as noted in HPI and below Telehealth Telehealth Telehealth Platform: Telephone Location of provider rendering services: practice address Location of patient: address on file Patient Identification confirmed using: Name, : Yes Telehealth method: voice only Patient verbally consented to treatment: Yes Patient verbally consented to billing insurance company: Yes Patient informed of any privacy concerns related to visit: No Minutes spent on Phone/Video with Pt.: 10 Results Reviewed Nephrology Results: Hgb 12.2 g/dl (14.0-18.0) L 01/17/24 WBC 8.8 X10*3/uL (4.8-10.8) 01/17/24 Plt Count 253 X10*3/uL (160-400) 01/17/24 Sodium 140 mmol/L (135-145) 01/17/24 Potassium 3.8 mmol/L (3.3-5.1) 01/17/24 Chloride 104 mmol/L (96-108) 01/17/24 Carbon Dioxide 25 mmol/L (22-29) 01/17/24 BUN 35 mg/dL (9-16) H 01/17/24 Creatinine 1.64 mg/dL (0.5-1.4) H 01/17/24 Calcium 9.8 mg/dL (8.4-10.2) 01/17/24 Urine Protein 300 (3+) mg/dL (Neg-Trace) H 01/17/24 Assessment & Plan Assessment & Plan (1) Hypertension: Code(s): I10 - Essential (primary) hypertension Category: Medical Qualifiers: Hypertension type: primary hypertension Qualified Code(s): I10 - Essential (primary) hypertension (2) Diabetic nephropathy: Code(s): E11.21 - Type 2 diabetes mellitus with diabetic nephropathy Category: Medical Qualifiers: Diabetes mellitus type: type 2 Qualified Code(s): E11.21 - Type 2 diabetes mellitus with diabetic nephropathy (3) CKD stage 3 secondary to diabetes: Code(s): E11.22 - Type 2 diabetes mellitus with diabetic chronic kidney disease; N18.30 - Chronic kidney disease, stage 3 unspecified Category: Medical Plan Mr. Solo has diabetic renal disease. He is at risk for secondary FSGS given his BMI. His fenofibrate has been on hold for now. He has been on amlodipine which has been discontinued due to gingival hyperplasia. He is on Avapro which he can continue at 75 mg which I plan to increase with time. I asked him to cut back sodium in the diet and aim for significant weight loss. He will be a candidate for Jardiance which I plan to initiate with time. He may need renal biopsy. I encouraged him to avoid nonsteroidal anti-inflammatories and maintain good hydration. He can cut back meat in the diet along with sodium especially given renal calculi. He should have more fruits and vegetables and increase citrate in the diet. I plan to do a 24 urine collection for stone screen with time. We will check his serum uric acid at the next visit. His blood pressure needs to be maintain a goal. I have ordered follow-up blood work and plan to see him in 3 months for continued care. Answered all questions. Follow-up appointment given Orders: Orders Electrolytes 3 Months E11.21 - Type 2 diabetes mellitus with diabetic nephropathy, E11.22 - Type 2 diabetes mellitus with diabetic chronic kidney disease, I10 - Essential (primary) hypertension, N18.30 - Chronic kidney disease, stage 3 unspecified Calcium 3 Months E11.21 - Type 2 diabetes mellitus with diabetic nephropathy, E11.22 - Type 2 diabetes mellitus with diabetic chronic kidney disease, I10 - Essential (primary) hypertension, N18.30 - Chronic kidney disease, stage 3 unspecified Blood Urea Nitrogen 3 Months E11.21 - Type 2 diabetes mellitus with diabetic nephropathy, E11.22 - Type 2 diabetes mellitus with diabetic chronic kidney disease, I10 - Essential (primary) hypertension, N18.30 - Chronic kidney disease, stage 3 unspecified Protein Creatinine Ratio, Ur 3 Months E11.21 - Type 2 diabetes mellitus with diabetic nephropathy, E11.22 - Type 2 diabetes mellitus with diabetic chronic kidney disease, I10 - Essential (primary) hypertension, N18.30 - Chronic kidney disease, stage 3 unspecified Uric Acid 3 Months E11.21 - Type 2 diabetes mellitus with diabetic nephropathy, E11.22 - Type 2 diabetes mellitus with diabetic chronic kidney disease, I10 - Essential (primary) hypertension, N18.30 - Chronic kidney disease, stage 3 unspecified Creatinine 3 Months E11.21 - Type 2 diabetes mellitus with diabetic nephropathy, E11.22 - Type 2 diabetes mellitus with diabetic chronic kidney disease, I10 - Essential (primary) hypertension, N18.30 - Chronic kidney disease, stage 3 unspecified Coding Level of Care Code [facility] Pt Level 4 (86088) Diagnoses Primary hypertension I10 Hypertension type: primary hypertension Diabetic nephropathy associated with type 2 diabetes mellitus E11.21 Diabetes mellitus type: type 2 CKD stage 3 secondary to diabetes E11.22; N18.30
== END 2024-04-09 15:52 | disposition home or self-care (01) ==
PROVIDERS: PCP Nurse Practitioner Family; Visit Provider Internal Medicine Nephrology
DX: I10 Essential (primary) hypertension (principal); E11.21 Type 2 diabetes mellitus with diabetic nephropathy; E11.22 Type 2 diabetes mellitus with diabetic chronic kidney disease; N18.30 Chronic kidney disease, stage 3 unspecified
CPT/HCPCS: 99214

== ENCOUNTER → 2024-04-09 14:38 | Outpatient (BNVA) | payer OTHER, SELFPAY | PROVIDERS: PCP Nurse Practitioner Family; Visit Provider Internal Medicine Nephrology ==

== ENCOUNTER 2024-07-03 07:51 | Outpatient (AMB) | payer OTHER, SELFPAY ==
--- NOTE | 2024-07-02 14:06 | A.OFFVIS_ITS ---
Vital Signs 07/03/24 08:02 Height 6 ft 4 in Weight 328 lb 7.82 oz BMI 40.0 BP 130/80 Blood Pressure Location Rt brachial Position Sitting Pulse 92 Pulse Source Pulse Oximeter Pulse Oximetry (%) 97 Oxygen Delivery Method Room Air Intake Visit Reasons: T1DM Intake Note: Patient presents today for a follow-up on Type 1 Diabetes Mellitus: Last Diabetic eye exam was on: DUE Last Podiatry exam was on: 11/20/2023 & 12/27/2023 Most recent HbA1c: 7.9%, 07/03/2024 Random Glucose- 153 mg/dL, Today Biologist Required: No Accompanied by: Self / Same As Patient Allergies No Known Allergies Allergy (Verified 07/03/24 08:27) HPI Comments Details: Patient is 48 yo male with DM type 1 diagnosed in May of 2017 who presents for continued diabetes management. The patient was last seen by myself 03/18/24. Hgb A1C 07/03/2024 03/14/24 7.5% 04/14 9.3%. Trulicity has been increased over the last few months. 12/2023 C-peptide 1.71 islet cell antibodies negative confirming he has type 2 Past medical history:DM1, CKD stage 3, hyperlipidemmia. Micro and macrovascular complications: + nephropathy, +Neuropathy, hx of osteomyelititis with amputation of 2nd & 3rd toe of right foot. Diabetes medications: Tresiba 70 units Admelog 22 units tid before meals Plus correction scale of plus 2 units for blood sugars over 200, +4 units for blood sugars over 250 and plus 6 units for blood sugars over 300. Trulicity 1.5 weekly Freestyle solo sensor 2 average glucose: [ 162] 14 day glucose sensor report reviewed Glucose Management indicator [7.5 ] % Interpretation of CGMS [morning readings 145 average highest average 12-6 185 ] Hyperglycemia: + urinary frequency (drinks a gallon of water daily), denies nocturia, + polydypsia Has HLD: on statin and zetia, fenofibrate on hold ldl 121 01/16/25 Last eye exam: 05/2021 - ou no retinopathy. Needs to make appt Sees opth in [place] which he will contact. Needs to reschedule, had covid at the time of appt Positive for neuropathy. He has numbness and tingling at point of toe amputtion. He sees podiatry on a regular basis. He checks his feet daily never walking barefooted. He has several amputated toes from previous infections. Nephropathy:he sees Dr. Mckeon @[facility] last seen 01/17/24: eGFR 45 45, 10/16/23P: microalbumin 1707 [facility] Medical History (Updated 03/18/24 @ 14:19 by Laurita Villegas NP) Diabetes mellitus type 2 with complications Amputation of left great toe Osteomyelitis of left foot Sepsis Osteomyelitis of foot Dyslipidemia Low vitamin B12 level Low vitamin D level Chronic kidney disease, stage 3 Surgical History History of amputation of toe Family History Father Diabetes Mother Diabetes Social History Household Members: Family Housing: House Patient Tobacco Use Status: Former Tobacco user e-Cigarette/Vaping Use: Never Used service: No Current occupational status: employed Cognitive needs: No Hearing needs: No Vision needs: Yes Physical Exam Vital Signs: Last Vital Signs Pulse 92 07/03/24 08:02 BP 130/80 07/03/24 08:02 Pulse Ox 97 07/03/24 08:02 Oxygen Delivery Method Room Air 07/03/24 08:02 BMI result Body Mass Index 40.0 Const Other: Absence of Cushingoid features. Absence of acromegalic features. Neck exam reveals nl size thyroid about 15 gms. No thyroid nodules palpable. Heart S1 S2, Reg R/R. No M/R G. Skin exam reveals absence of vitiligo or acanthosis nigricans. Amputation multiple toes Visual exam of foot performed. No ulcerations or open lesions. No inter digit maceration or fissuring. No onychomycosis, no callouses. Sensation intact to monofilament exam. Vibratory sensation is normal with 128 Hz tuning fork. Results AMB Hemoglobin A1c AMB Hemoglobin A1c 7.9 % Last Edit by SALOME Feliz on 07/03/24 08:19 Results Reviewed Results Reviewed: Laboratory Last Values Glucose (Clinic) 153 mg/dL (60-115) H 07/03/24 08:06 Hgb A1c (Clinic) 7.9 % (4.0-6.0) H 07/03/24 08:19 Assessment & Plan Assessment & Plan (1) Diabetes mellitus type 2 with complications: Code(s): E11.8 - Type 2 diabetes mellitus with unspecified complications Category: Medical Plan: 40-year-old type 2 diabetic with neuropathy, retinopathy and nephropathy with the an A1c of 7.9%. Failure to achieve target A1c is 7%. We will change GLP 1 over from Trulicity to Ozempic to improve A1c in addition to the fact that patient is followed by Nephrology for chronic kidney disease and Ozempic has been given the indication to slow progression of kidney disease. We will switch patient over to freestyle Solo 3+ so that he can monitor his sugars more frequently given that he is on basal bolus insulin for injections daily and is not at target A1c despite q.i.d. insulin injections low with GLP 1 agonist. Tresiba 70 units Admelog 22 units tid before breakfast and supper 26 units before lunch Plus correction scale of plus 2 units for blood sugars over 200, +4 units for blood sugars over 250 and plus 6 units for blood sugars over 300. The patient was given 1 sample of freestyle Solo 3+ and was able to download the roberta in the office. He will contact [employer] for training. The patient had an opportunity to ask questions regarding treatment plan. The patient expressed understanding and agreement with the above treatment plan. The patient is aware they should contact our office by phone for worsening glucose readings or for any low blood sugars which may warrant a change in diabetes medication. Compliance is encouraged with medications and any followup testing/consults which may have been ordered. Orders: Orders AMB Hemoglobin A1c Today E11.8 - Type 2 diabetes mellitus with unspecified complications Medications: New blood-glucose sensor (FreeStyle Solo 3 Sensor device) As directed every 15 days 2 ea 11RF E10.65 - Type 1 diabetes mellitus with hyperglycemia semaglutide (Ozempic) .25 weekly for two weeks then increase to .5mg subcutaneously every week 28 days 3 mL 10RF Changed From insulin lispro 20 units before lunch 20 units before supper Plus scale: 150-200 +2units, 201-250: +4 units, over 250 +6 units 30 days 30 mL 3RF MDD 56 E10.65 - Type 1 diabetes mellitus with hyperglycemia To insulin lispro 1 sliding scale dose subcut TID 30 days 30 mL 11RF MDD 56 E10.65 - Type 1 diabetes mellitus with hyperglycemia Discontinued dulaglutide (Trulicity) Discontinued Reason: Doctor's Order 1.5 mg subcut QWEEK 28 days 4 mL 6RF E 11.8 - Type 2 diabetes mellitus with unspecified complications Patient Instructions: Take 15 carb carbohydrate grams to treat a low sugar (3-4 glucose tablets, half a glass of juice or 15 carbohydrate grams of soft candy such as gummie snacks). Recheck your sugar in 15 minutes and re-treat again with 15 carbohydrate grams if low or still with symptoms. Do not drive a car or operate machinery if you do not know what your blood sugar is, if it is low or in excess of 300. Check your feet daily looking for any signs of infection, drainage, redness, ulceration and seek medical attention if this occurs. Break in shoes gradually and do not wear open-toed shoes or walk stocking footed or barefooted. The patient was counseled to achieve a target A1C of 7% (154 avg). Fasting blood sugars should be 90-130 in the morning and less than 180 two hours after meals. Reviewed the relationship between poor diabetic control and the development of complications. Sick day management reviewed. Coding Level of Care Code Est Pt Level 5 (48186) Complex EM visit Add On G2211 Diagnoses Diabetes mellitus type 2 with complications E11.8 Time Spent (min) 50 Comment Time spent reviewing labs/provider notes, glucose,sensor reports, face to face, chart doc
[2024-07-03 08:02] VITALS: BP 130/80; PULSE 92; O2SAT 97; BMI 40.0
--- OUTSIDE RECORDS SUMMARY | 2024-07-03 08:03 | XMS_ITS | Clinical Summary ---
Author Organization [facility] Address [address] [place] [address] Care Team Providers Care Hassock Maker Name Role Phone Bj Rosales MD Primary Care Provider Unava ilable Surgical History Surgery Date Site/Laterality Comments BYPASS GRAFT 2018 PROCEDURE: AL AMPUTATION TOE METATARSOPHALANGEAL JOINT Medical History Medical History Date Comments HTN (hypertension) DX:HTN (hyper tension) Insulin dependent diabetes mellitus DX:Insulin dependent diabetes mellitus MSSA (methicillin susceptibl e Staphylococcus aureus) infection DX:MSSA (methicillin susceptible Staphylococcus aureus) infection Osteomyelitis (CMS/HCC) DX:Osteo myelitis (HCC) History of amputation of les ser toe, right (CMS/HCC) DX:History of amputation of lesser toe, right (HCC); COMMENT: [facility] DX:[facility] resident; COMMENT: [facility] Social History Tobacco Use Types Packs/Day Years Used Date Smoking Tobacco: Former Cigarettes Q uit: 05/04/1996 Smokeless Tobacco: Never Alcohol Use Standard Drinks/Week Comments Yes 0 (1 standard drink = 0.6 oz pur e alcohol) Sex and Gender Information Value Date Recorded Sex Assigned at Not on file Legal Sex Male 10:31 AM EST Gender Identity Not on file Sexual Orientation Not on file Obstetrics History Last Filed Vital Signs Vital Sign Reading Time Taken Comments Blood Pressure - - Pulse - - Temperature - - Respiratory Rate - - Oxygen Saturation - - Inhaled Oxygen Concentration - - Weight 150 kg (330 lb) 09/20/2022 2:18 PM EDT Height 193 cm (6' 4 ) 09/20/2022 2:18 PM EDT Body Mass Index 40.17 09/20/2022 2:18 PM EDT Plan of Treatment Health Maintenance Due Date Last Done Comments Diabetes: Annual GFR (Glomerular Filtration Rate) 1975 Diabetes: Annual Foot Exam 11/20/1985 Diabetes: Annual Retina Eye Exam 11/20/1985 Hepatitis B Vaccines (1 of 3 - 19+ 3-dose series) 11/20/1994 Cholesterol Screening (Lipid Panel) 05/22/2023 Colorectal Cancer Screening: Colonoscopy 05/22/2023 Depression Screening 05/22/2023 Diabetes: Annual Urine Albumin-Creatinine Ratio (uACR) 05/22/2023 Diabetes: Blood Sugar Contro l Test (HGBA1C) 05/22/2023 HIV Screening 05/22/2023 Hepatitis C Screening 05/22/2023 Hypertension/CHF/CAD Annual BMP Blood Test 05/22/2023 Social Influencers of Health Screening 05/22/2023 COVID-19 Vaccine ( - 2023-2 5 season) 2023 Influenza Vaccine (#1) 2023 06/07/2017 DTaP,Tdap,and Td Vaccines (2 - Td or Tdap) 05/24/2027 05/24/2017 Pneumococcal Vaccine: Pediatrics (0 to 5 Years) and At-Risk Patients (6 to 64 Years) Aged Out 03/04/2018, 11/12/2017 No longer eligible based on patient's age to complete this topic HIB Vaccines Aged Out No longer eligi ble based on patient's age to complete this topic HPV Vaccines Aged Out No longer eligi ble based on patient's age to complete this topic Hepatitis A Vaccines Aged Out No long er eligible based on patient's age to complete this topic IPV Vaccines Aged Out No longer eligi ble based on patient's age to complete this topic MMR Vaccines Aged Out No longer eligi ble based on patient's age to complete this topic Meningococcal ACWY Vaccine Aged Out N o longer eligible based on patient's age to complete this topic Meningococcal B Vacine Aged Out No lo nger eligible based on patient's age to complete this topic RSV Immunization Patients Under 20 months Aged Out No longer eligible b ased on patient's age to complete this topic Varicella Vaccines Aged Out No longer eligible based on patient's age to complete this topic Advance Directives Documents on File Type Date Recorded Patient Charge Entry Specialist Expl anation Health Care Decision (hx) 06/18/2017 AD MALONE DIRECTIVE Health Care Decision (hx) 06/18/2017 AD MALONE DIRECTIVE Health Care Decision (hx) 06/18/2017 AD MALONE DIRECTIVE Health Care Decision (hx) 06/18/2017 AD MALONE DIRECTIVE Health Care Decision (hx) 06/18/2017 AD MALONE DIRECTIVE Health Care Decision (hx) 06/18/2017 AD MALONE DIRECTIVE Health Care Decision (hx) 06/18/2017 AD MALONE DIRECTIVE Health Care Decision (hx) 06/18/2017 AD MALONE DIRECTIVE Health Care Decision (hx) 06/18/2017 AD MALONE DIRECTIVE Health Care Decision (hx) 06/18/2017 AD MALONE DIRECTIVE Health Care Decision (hx) 06/18/2017 AD MALONE DIRECTIVE Care Teams Hassock Maker Relationship Specialty Start Date End Date Bj Rosales MD PCP - General Internal Medicine 03/13/18
[2024-07-03 08:11] LABS: Glucose, Whole Blood 153 mg/dL (60-115)
--- OUTSIDE RECORDS SUMMARY | 2024-07-03 08:29 | XMS_ITS | Clinical Summary ---
Author Organization [facility] Address [address] [place] [address] Care Team Providers Care Filling Operator Name Role Phone jB Rosales MD Primary Care Provider Unava ilable Surgical History Surgery Date Site/Laterality Comments BYPASS GRAFT 2018 PROCEDURE: HI AMPUTATION TOE METATARSOPHALANGEAL JOINT Medical History Medical History Date Comments HTN (hypertension) DX:HTN (hyper tension) Insulin dependent diabetes mellitus DX:Insulin dependent diabetes mellitus MSSA (methicillin susceptibl e Staphylococcus aureus) infection DX:MSSA (methicillin susceptible Staphylococcus aureus) infection Osteomyelitis (CMS/HCC) DX:Osteo myelitis (HCC) History of amputation of les ser toe, right (CMS/HCC) DX:History of amputation of lesser toe, right (HCC); COMMENT: 3rd toe care home resident DX:care home resident; COMMENT: [facility] Social History Tobacco Use Types Packs/Day [...] Documents on File Type Date Recorded Patient Back Tender Cloth Printing Expl anation Health Care Decision (hx) 06/18/2017 [...] (hx) 06/18/2017 AD MALONE DIRECTIVE Care Teams Filling Operator Relationship Specialty Start Date End Date Bj Rosales MD PCP - General Internal Medicine 03/13/18
== END 2024-07-03 08:29 | disposition home or self-care (01) ==
PROVIDERS: PCP Nurse Practitioner Family; Visit Provider Nurse Practitioner Adult Health
DX: E11.42 Type 2 diabetes mellitus with diabetic polyneuropathy (principal); E11.21 Type 2 diabetes mellitus with diabetic nephropathy; E11.319 Type 2 diabetes mellitus with unspecified diabetic retinopathy without macular edema
CPT/HCPCS: 99215; G2211

== ENCOUNTER 2024-07-03 08:00 | Outpatient (REF) | payer OTHER, SELFPAY ==
--- OUTSIDE RECORDS SUMMARY | 2024-07-03 09:20 | XMS_ITS | Clinical Summary ---
Author Organization [facility] Address [address] [place] [address] Care Team Providers Care Pedodontist Name Role Phone Bj Rosales MD Primary Care Provider Un available Bj Rosales MD Unavailable Unavaila ble Allergies No known active allergies Medications Medication Sig Dispensed Refills Start Date End Date Status Heparin Sodium, Porcine, 5000 UNIT/5ML Solution Prefilled Syringe Inject 300 Units into the skin at bedtime. 0 Active Insulin Glargine (LANTUS SOLOSTAR SC) Inject 300 Units into the skin at bedtime. 0 Active Cholecalciferol (VITAMIN D-3 OR) Take 2,000 Units by mouth daily. 0 Active Cyanocobalamin 1000 MCG/ML Kit Inject 1,000 mcg as directed every 30 days. 0 Active pravastatin (PRAVACHOL) 20 MG tablet Take 20 mg by mouth daily. 0 Active FOLIC ACID OR Take by mouth. 0 Active Active Problems Problem Noted Date Osteomyelitis MSSA (methicillin susceptible Staphyloco ccus aureus) infection Insulin dependent diabetes mellitus HTN (hypertension) History of amputation of lesser toe, rig ht Overview: 3rd toe half-way resident Overview: [facility] Social History Tobacco Use Types Packs/Day Years Used Date Smoking Tobacco: Former Cigarettes Q uit: 05/04/1996 Smokeless Tobacco: Never Tobacco Cessation:Counseling Given: Not Answered Alcohol Use Standard Drinks/Week Comments Yes 0 (1 standard drink = 0.6 oz pur e alcohol) occasional Sex Assigned at Date Recorded Not on file Last Filed Vital Signs Vital Sign Reading Time Taken Comments Blood Pressure 102/70 01/02/2018 1:50 PM EDT Pulse 86 01/02/2018 1:50 PM EDT Temperature - - Respiratory Rate 18 01/02/2018 1:50 PM EDT Oxygen Saturation - - Inhaled Oxygen Concentration - - Weight 149.7 kg (330 lb) 09/20/2022 2:18 PM EDT Height 193 cm (6' 4 ) 09/20/2022 2:18 PM EDT Body Mass Index 40.17 09/20/2022 2:18 PM EDT Plan of Treatment Health Maintenance Due Date Last Done Comments Covid-19 Vaccine (#1) 05/23/1976 DIABETES/HEART DISEASE: ANNUAL CHOLESTEROL (LDL) 11/20 DIABETES: ANNUAL EYE EXAM 11/20/1993 DIABETES: ANNUAL FOOT EXAM 11/20/1993 DIABETES: ANNUAL URINE PROTEIN TEST (MICROALBUMIN) DIABETES: BLOOD SUGAR CONTROL TEST (HGBA1C) 11/20/1993 BASELINE HEALTH EXAM 40-64 2015 INFLUENZA (#1) 2023 BMI CHECK/ADVISE 04/23/2024 DEPRESSION SCREENING/FOLLOWUP 04/23/2024 SOCIAL NEEDS SCREENING 04/23/2024 DTAP/TDAP/TD (2 - Td or Tdap) 05/24/2027 05/24/2017 PNEUMOCOCCAL VACCINE FOR HIGH RISK PATIENTS (#2) 11/2003/04/2018 Care Teams Pedodontist Relationship Specialty Start Date End Date Bj Rosales MD PCP - General Internal Medicine 03/13/18 Bj Rosales MD Internal Medicine 03/13/18
--- OUTSIDE RECORDS SUMMARY | 2024-07-03 09:21 | XMS_ITS | Encounter Summary ---
Author Organization [facility] Address [address] [place] [address] Care Team Providers Care Director Private Music Therapy Agency Name Role Phone Bj Rosales MD Primary Care Provider Un available Bj Rosales MD Unavailable Unavaila ble Encounter Details Date Type Department Care Team Description 06/10/2018 Gold Layer Report Medical Records [address] [place] [id number] Fozia Bautista MD [address] [place] [id number] Social History Tobacco Use Types Packs/Day Years Used Date Smoking Tobacco: Former Cigarettes Q uit: 05/04/1996 Smokeless Tobacco: Never Alcohol Use Standard Drinks/Week Comments Yes 0 (1 standard drink = 0.6 oz pur e alcohol) occasional Sex Assigned at Date Recorded Not on file documented as of this encounter Plan of Treatment Not on file documented as of this encounter Visit Diagnoses Not on filedocumented in this encounter Care Teams Director Private Music Therapy Agency Relationship Specialty Start Date End Date Bj Rosales MD PCP - General Internal Medicine 03/13/18 Bj Rosales MD Internal Medicine 03/13/18 documented as of this encounter
--- OUTSIDE RECORDS SUMMARY | 2024-07-03 09:21 | XMS_ITS | Encounter Summary ---
Author Organization [facility] Address [address] [place] [address] Care Team Providers Care Airplane Dispatch Clerk Name Role Phone Bj Rosales MD Primary Care Provider Un available Bj Rosales MD Unavailable Unavaila ble Encounter Details Date Type Department Care Team Description 09/20/2018 Talent Management Manager Report Medical Records [address] [place] [id number] Fozia Bautista MD [address] [place] [phone] Social History Tobacco Use Types Packs/Day [...] on filedocumented in this encounter Care Teams Airplane Dispatch Clerk Relationship Specialty Start Date End Date Bj Rosales MD PCP - General Internal Medicine 03/13/18 Bj Rosales MD Internal Medicine 03/13/18 documented as of this encounter
--- OUTSIDE RECORDS SUMMARY | 2024-07-03 09:21 | XMS_ITS | Encounter Summary ---
Author Organization [facility] Address [address] [place] [address] Care Team Providers Care Fitting Supervisor Name Role Phone Bj Rosales MD Primary Care Provider Un available Bj Rosales MD Unavailable Unavaila ble Encounter Details Date Type Department Care Team Description 01/17/2019 Global Marketing Operations Manager Report Medical Records [address] [place] [address] Fozia Bautista MD [address] [place] [phone] Social History Tobacco Use Types Packs/Day [...] on filedocumented in this encounter Care Teams Fitting Supervisor Relationship Specialty Start Date End Date Bj Rosales MD PCP - General Internal Medicine 03/13/18 Bj Rosales MD Internal Medicine 03/13/18 documented as of this encounter
--- OUTSIDE RECORDS SUMMARY | 2024-07-03 09:21 | XMS_ITS | Encounter Summary ---
Author Organization [facility] Address [address] [place] [address] Care Team Providers Care Outer Diameter Grinder Tool Name Role Phone Bj Rosales MD Primary Care Provider Un available Bj Rosales MD Unavailable Unavaila ble Encounter Details Date Type Department Care Team Description 11/25/2018 Hospital Medical Records [address] [place] [address] Fozia Bautista MD [address] [facility] [address] [place] [phone] Social History Tobacco Use Types Packs/Day [...] on filedocumented in this encounter Care Teams Outer Diameter Grinder Tool Relationship Specialty Start Date End Date Bj Rosales MD PCP - General Internal Medicine 03/13/18 Bj Rosales MD Internal Medicine 03/13/18 documented as of this encounter
--- OUTSIDE RECORDS SUMMARY | 2024-07-03 09:21 | XMS_ITS | Encounter Summary ---
Author Organization [facility] Address [address] [place] [address] Care Team Providers Care Divisional Storekeeper Name Role Phone Bj Rosales MD Primary Care Provider Un available Bj Rosales MD Unavailable Unavaila ble Encounter Details Date Type Department Care Team Description 07/15/2018 Sociology Professor Report Medical Records [address] [place] [address] Fozia Bautista MD [address] [place] [phone] Social History Tobacco Use Types Packs/Day [...] on filedocumented in this encounter Care Teams Divisional Storekeeper Relationship Specialty Start Date End Date Bj Rosales MD PCP - General Internal Medicine 03/13/18 Bj Rosales MD Internal Medicine 03/13/18 documented as of this encounter
--- OUTSIDE RECORDS SUMMARY | 2024-07-03 09:21 | XMS_ITS | Encounter Summary ---
Author Organization [facility] Address [address] [place] [address] Care Team Providers Care Sales Support Coordinator Name Role Phone Bj Rosales MD Primary Care Provider Un available Bj Rosales MD Unavailable Unavaila ble Encounter Details Date Type Department Care Team Description 07/22/2018 Chief Load Dispatcher Report Medical Records [address] [place] [address] Social History Tobacco Use Types Packs/Day Years [...] on filedocumented in this encounter Care Teams Sales Support Coordinator Relationship Specialty Start Date End Date Bj Rosales MD PCP - General Internal Medicine 03/13/18 Bj Rosales MD Internal Medicine 03/13/18 documented as of this encounter
--- OUTSIDE RECORDS SUMMARY | 2024-07-03 09:21 | XMS_ITS | Encounter Summary ---
Author Organization [facility] Address [address] [place] [address] Care Team Providers Care Radiosonde Operator Name Role Phone Bj Rosales MD Primary Care Provider Un available Bj Rosales MD Unavailable Unavaila ble Encounter Details Date Type Department Care Team Description 08/04/2022 Orders Only Medical Records [address] [place] [id number] Jeffery Krishna DPM Social History Tobacco Use Types Packs/Day Years Used Date Smoking Tobacco: Former Cigarettes Q uit: 05/04/1996 Smokeless Tobacco: Never Alcohol Use Standard Drinks/Week Comments Yes 0 (1 standard drink = 0.6 oz pur e alcohol) occasional Sex Assigned at Date Recorded Not on file documented as of this encounter Plan of Treatment Not on file documented as of this encounter Procedures Procedure Name Priority Date/Time Associated Diagnosis Comments OUTSIDE PATHOLOGY Routine 07/31/2022 documented in this encounter Results * OUTSIDE PATHOLOGY (07/31/2022) Jeffery Krishna DPM OUTSIDE LAB documented in this encounter Visit Diagnoses Not on filedocumented in this encounter Care Teams Radiosonde Operator Relationship Specialty Start Date End Date Bj Rosales MD PCP - General Internal Medicine 03/13/18 Bj Rosales MD Internal Medicine 03/13/18 documented as of this encounter
--- OUTSIDE RECORDS SUMMARY | 2024-07-03 09:21 | XMS_ITS | Encounter Summary ---
Author Organization [facility] Address [address] [place] [address] Care Team Providers Care Gambling Broker Name Role Phone Bj Rosales MD Primary Care Provider Un available Bj Rosales MD Unavailable Unavaila ble Encounter Details Date Type Department Care Team Description 11/08/2018 Integrated Marketing Intern Report Medical Records [address] [place] [address] Fozia Bautista MD [address] [place] [phone] Social History Tobacco Use Types Packs/Day [...] on filedocumented in this encounter Care Teams Gambling Broker Relationship Specialty Start Date End Date Bj Rosales MD PCP - General Internal Medicine 03/13/18 Bj Rosales MD Internal Medicine 03/13/18 documented as of this encounter
--- OUTSIDE RECORDS SUMMARY | 2024-07-03 09:21 | XMS_ITS | Encounter Summary ---
Author Organization [facility] Address [address] [place] [address] Care Team Providers Care Interrelated Special Education Teacher Name Role Phone Bj Rosales MD Primary Care Provider Un available Bj Rosales MD Unavailable Unavaila ble Reason for Visit * Reason Onset Date Comments Homecare 12/04/2018 Encounter Details Date Type Department Care Team Description 12/04/2018 Telephone Vascular Surgery - [place] [address] [place] [phone] Fozia Bautista MD [address] [facility] [address] [place] [phone] Homecare Social History Tobacco Use Types Packs/Day Years Used Date Smoking Tobacco: Former Cigarettes Q uit: 05/04/1996 Smokeless Tobacco: Never Alcohol Use Standard Drinks/Week Comments Yes 0 (1 standard drink = 0.6 oz pur e alcohol) occasional Sex Assigned at Date Recorded Not on file documented as of this encounter Miscellaneous Notes * Telephone Encounter - Celsa Loya M.A. - 12/04/2018 3:28 PM EDT Please advise. * Telephone Encounter - Tika Goncalves - 12/04/2018 2:52 PM EDT Ashleigh from [facility] would like to know the orders for wound care for patient. Please advise. documented in this encounter Plan of Treatment Not on file documented as of this encounter Visit Diagnoses Not on filedocumented in this encounter Care Teams Interrelated Special Education Teacher Relationship Specialty Start Date End Date Bj Rosales MD PCP - General Internal Medicine 03/13/18 Bj Rosales MD Internal Medicine 03/13/18 documented as of this encounter
--- OUTSIDE RECORDS SUMMARY | 2024-07-03 09:21 | XMS_ITS | Encounter Summary ---
Author Organization [facility] Address [address] [place] [address] Care Team Providers Care Vinyl Hanger Name Role Phone Bj Rosales MD Primary Care Provider Un available Bj Rosales MD Unavailable Unavaila ble Encounter Details Date Type Department Care Team Description 04/26/2018 Archival Records Clerk Report Medical Records [address] [place] [address] Fozia Bautista MD [address] [place] [phone] Social History Tobacco Use Types Packs/Day [...] on filedocumented in this encounter Care Teams Vinyl Hanger Relationship Specialty Start Date End Date Bj Rosales MD PCP - General Internal Medicine 03/13/18 Bj Rosales MD Internal Medicine 03/13/18 documented as of this encounter
--- OUTSIDE RECORDS SUMMARY | 2024-07-03 09:21 | XMS_ITS | Encounter Summary ---
Author Organization [facility] Address [address] [place] [address] Care Team Providers Care Finish Repair Worker Name Role Phone Bj Rosales MD Primary Care Provider Un available Bj Rosales MD Unavailable Unavaila ble Encounter Details Date Type Department Care Team Description 09/06/2018 Machine Driller Report Medical Records [address] [place] [address] Fozia Bautista MD [address] [place] [phone] Social History Tobacco Use Types Packs/Day [...] on filedocumented in this encounter Care Teams Finish Repair Worker Relationship Specialty Start Date End Date Bj Rosales MD PCP - General Internal Medicine 03/13/18 Bj Rosales MD Internal Medicine 03/13/18 documented as of this encounter
--- OUTSIDE RECORDS SUMMARY | 2024-07-03 09:21 | XMS_ITS | Encounter Summary ---
Author Organization [facility] Address [address] [place] [address] Care Team Providers Care Membership Sales Manager Name Role Phone Bj Rosales MD Primary Care Provider Un available Bj Rosales MD Unavailable Unavaila ble Encounter Details Date Type Department Care Team Description 03/25/2018 Die Holder Report Medical Records [address] [place] [address] Fozia Bautista MD [address] [place] [phone] Social History Tobacco Use Types Packs/Day [...] on filedocumented in this encounter Care Teams Membership Sales Manager Relationship Specialty Start Date End Date Bj Rosales MD PCP - General Internal Medicine 03/13/18 Bj Rosales MD Internal Medicine 03/13/18 documented as of this encounter
--- OUTSIDE RECORDS SUMMARY | 2024-07-03 09:21 | XMS_ITS | Encounter Summary ---
Author Organization [facility] Address [address] [place] [address] Care Team Providers Care Editor Farm Journal Name Role Phone Bj Rosales MD Primary Care Provider Un available Bj Rosales MD Unavailable Unavaila ble Encounter Details Date Type Department Care Team Description 04/08/2018 Computer Education Teacher Report Medical Records [address] [place] [address] Fozia Bautista MD [address] [place] [phone] Social History Tobacco Use Types Packs/Day [...] on filedocumented in this encounter Care Teams Editor Farm Journal Relationship Specialty Start Date End Date Bj Rosales MD PCP - General Internal Medicine 03/13/18 Bj Rosales MD Internal Medicine 03/13/18 documented as of this encounter
--- OUTSIDE RECORDS SUMMARY | 2024-07-03 09:21 | XMS_ITS | Encounter Summary ---
Author Organization [facility] Address [address] [place] [address] Care Team Providers Care Soccer Referee Name Role Phone Bj Rosales MD Primary Care Provider Un available Bj Rosales MD Unavailable Unavaila ble Encounter Details Date Type Department Care Team Description 10/04/2018 Real Estate Photographer Report Medical Records [address] [place] [address] Fozia Bautista MD [address] [place] [phone] Social History Tobacco Use Types Packs/Day [...] on filedocumented in this encounter Care Teams Soccer Referee Relationship Specialty Start Date End Date Bj Rosales MD PCP - General Internal Medicine 03/13/18 Bj Rosales MD Internal Medicine 03/13/18 documented as of this encounter
--- OUTSIDE RECORDS SUMMARY | 2024-07-03 09:21 | XMS_ITS | Clinical Summary ---
Author Organization [facility] Address [address] [place] [address] Care Team Providers Care Busperson Name Role Phone Bj Rosales MD Primary Care Provider Unava ilable Surgical History Surgery Date Site/Laterality Comments BYPASS GRAFT 2018 PROCEDURE: [place] AMPUTATION TOE METATARSOPHALANGEAL JOINT Medical History Medical [...] 3rd toe [facility] resident DX:[facility]; COMMENT: [facility] Social History Tobacco Use Types Packs/Day [...] Documents on File Type Date Recorded Patient Income Tax Analyst Expl anation Health Care Decision (hx) 06/18/2017 [...] (hx) 06/18/2017 AD MALONE DIRECTIVE Care Teams Busperson Relationship Specialty Start Date End Date Bj Rosales MD PCP - General Internal Medicine 03/13/18
--- OUTSIDE RECORDS SUMMARY | 2024-07-03 09:21 | XMS_ITS | Encounter Summary ---
Author Organization [facility] Address [address] [place] [address] Care Team Providers Care Cardiopulmonary Technologist Name Role Phone Bj Rosales MD Primary Care Provider Un available Bj Rosales MD Unavailable Unavaila ble Encounter Details Date Type Department Care Team Description 05/27/2018 Cleaning Machine Operator Report Medical Records [address] [place] [phone] Fozia Bautista MD [address] [place] [phone] Social History Tobacco Use Types Packs/Day [...] on filedocumented in this encounter Care Teams Cardiopulmonary Technologist Relationship Specialty Start Date End Date Bj Rosales MD PCP - General Internal Medicine 03/13/18 Bj Rosales MD Internal Medicine 03/13/18 documented as of this encounter
[2024-07-03 09:46] LABS: Appearance Urine Clear; Color Urine Yellow; Glucose Urine UA Negative (Negative); Leukocyte Esterase Urine Negative (Negative); Nitrite Urine Negative (Negative); UMIC TRIGGER UACC YES; Urine Blood Trace (Negative); Urine Ketones Negative (Negative); Urine Protein 300 (3+) mg/dL (Neg-Trace)
[2024-07-03 09:52] LABS: Bacteria Urine None Seen (None Seen); RBC Urine 0-2 /HPF (0-2); Squamous Epithelial Cell Urine 0-2 /HPF (0-2); WBC Urine 0-5 /HPF (0-5)
[2024-07-03 10:03] LABS: Anion Gap 14 (12-20); Blood Urea Nitrogen 37 mg/dL (9-16); Calcium 10.2 mg/dL (8.4-10.2); Carbon Dioxide 26 mmol/L (22-29); Chloride 103 mmol/L (96-108); Estimated Glomerular Filt Rate 52; Potassium 4.1 mmol/L (3.3-5.1); Sodium 139 mmol/L (135-145)
[2024-07-03 10:28] LABS: Uric Acid 13.1 mg/dL (3.4-7.0)
[2024-07-03 11:26] LABS: Total Protein Urine Random 183 mg/dL (<12)
[2024-07-06 23:39] LABS: Glutamic acid decarboxylase Ab <5 IU/mL (<5)
[2024-07-09 03:18] LABS: Islet Cell Antibody Screen NEGATIVE (NEGATIVE)
== END 2024-07-03 08:01 | disposition home or self-care (01) ==
LOC: HO.LAB 08:00
PROVIDERS: Absent Provider Internal Medicine Nephrology; PCP Nurse Practitioner Family; Visit Provider Nurse Practitioner Adult Health
DX: E10.21 Type 1 diabetes mellitus with diabetic nephropathy (principal); E10.22 Type 1 diabetes mellitus with diabetic chronic kidney disease; N18.30 Chronic kidney disease, stage 3 unspecified; N20.0 Calculus of kidney; N28.1 Cyst of kidney, acquired; E10.319 Type 1 diabetes mellitus with unspecified diabetic retinopathy without macular edema; Z79.4 Long term (current) use of insulin; E10.8 Type 1 diabetes mellitus with unspecified complications
CPT/HCPCS: 36415; 80051; 81001; 82310; 82565; 82570; 82947; 83036; 84156; 84520; 84550; 86341; 99212

== ENCOUNTER 2024-10-02 07:51 | Outpatient (AMB) | payer OTHER, SELFPAY ==
--- NOTE | 2024-10-02 07:06 | A.OFFVIS_ITS ---
Vital Signs 10/02/24 08:00 Height 6 ft 4 in Weight 315 lb 4.176 oz BMI 38.4 BP 120/84 Blood Pressure Location Rt brachial Position Sitting Pulse 85 Pulse Source Pulse Oximeter Pulse Oximetry (%) 98 Oxygen Delivery Method Room Air Intake Visit Reasons: Diabetes Type 2 Intake Note: Patient presents today for a follow-up on Type 2 Diabetes Mellitus: Last Diabetic eye exam was on: DUE Last Podiatry exam was on: 06/30/2024, [facility]. Most recent HbA1c: 7.4%, 10/02/2024 Random Glucose- 115 mg/dL, Today Allergies No Known Allergies Allergy (Verified 07/03/24 08:27) Medication List - Last Reconciled 10/02/24 by Laurita Villegas NP bisacodyl (Dulcolax (bisacodyl)) 5 mg PO BEDTIME 30 days blood sugar diagnostic As directed blood sugar diagnostic (FreeStyle Lite Strips) As directed tid prn sensor failu re, confirm glucose blood-glucose sensor (FreeStyle Solo 3 Sensor device) As directed every 15 days chlorthalidone 12.5 mg (1/2 x 25 mg) PO DAILY cholecalciferol (vitamin D3) 50 mcg PO DAILY cyanocobalamin (vitamin B-12) 1,000 mcg IM .Qmonthly ezetimibe 10 mg PO DAILY flash glucose scanning reader (FreeStyle Solo 2 [place]) As directed flash glucose sensor (FreeStyle Solo 2 Sensor kit) DIRECTED EVERY 2 WEEKS FreeStyle [place] (blood-glucose meter) As directed freestyle lite meter NS insulin degludec (Tresiba FlexTouch U-200 insulin) 70 units (0.35 mL) subcut DAILY 30 days insulin lispro 1 sliding scale dose subcut TID 30 days MDD 56 irbesartan 75 mg (1/2 x 150 mg) PO DAILY 90 days ketoconazole 2% 1 appl topical DAILY 30 days lancets (FreeStyle Lancets) 3 times daily if sensor is not available or to confirm readings pen needle, diabetic (BD Ultra-Fine Cassandra Pen Needle) As directed pravastatin 80 mg PO DAILY 90 days semaglutide (Ozempic) 0.5 mg (0.736 mL) subcut QWEEK 28 days HPI Comments Details: Patient is 48 yo male with DM type 1 diagnosed in May of 2017 who presents for continued diabetes management. The patient was last seen by myself 07/02/24 at which time he was switched from Trulicity to Ozempic in converted over to a freestyle Solo 3+. Hgb A1C 10/02/24 %, , 07/03/2024 7.9%, 03/14/24 7.5% 04/14 9.3%. Trulicity has been increased over the last few months. 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 Previously was on Trulicity which was not effective and had nausea which had gotten better ozempic causing some constipation. Diabetes medications: Tresiba 70 units Admelog 22 units before breakfast and supper 26 units before lunch Plus correction scale of plus 2 units for blood sugars over 200, +4 units for blood sugars over 250 and plus 6 units for blood sugars over 300 Ozempic 0.25mg weekly Freestyle solo sensor 3 average glucose: 139 14 day continuous glucose sensor report reviewed Glucose Management indicator 6.6 % Time CGM active [ ] % TIme in ranges: One % very high (above 250) 12 % high (181-250) 87 % in range (70-180] 0 % low (69-55) 0 % very low (below 54) Interpretation of CGMS excellent control without hypos Interpretation of CGMS [morning readings 145 average highest average 12-6 185 ] Hyperglycemia: + urinary frequency (drinks a gallon of water daily), denies nocturia, + polydypsia Has HLD: on statin and zetia, fenofibrate stopped by nephrology ldl 121 01/16/25 Last eye exam: 05/2021 - ou no retinopathy. Needs to make appt Sees opth in [place] which he will contact. Needs to reschedule, had covid at the time of appt Positive for neuropathy. He has numbness and tingling at point of toe amputtion. He sees podiatry on a regular basis. He checks his feet daily never walking barefooted. He has several amputated toes from previous infections. He had foot surgery several weeks ago and has follow up with a behaviour support teacher in 1 week. Podiatry checks both feet Nephropathy:he sees Dr. Mckeon @[facility] 10/02/24 eGFR 52, previous eGFR 45 , 10/16/23 microalbumin 1707 [facility] Medical History (Updated 10/02/24 @ 10:03 by Laurita Villegas NP) Diabetes mellitus type 2 with complications Amputation of left great toe Osteomyelitis of left foot Sepsis Osteomyelitis of foot Dyslipidemia Low vitamin B12 level Low vitamin D level Chronic kidney disease, stage 3 Surgical History History of amputation of toe Family History Father Diabetes Mother Diabetes Social History Household Members: Family Housing: House Patient Tobacco Use Status: Former Tobacco user e-Cigarette/Vaping Use: Never Used service: No Current occupational status: employed Cognitive needs: No Hearing needs: No Vision needs: Yes Physical Exam Vital Signs: Last Vital Signs Pulse 85 10/02/24 08:00 BP 120/84 10/02/24 08:00 Pulse Ox 98 10/02/24 08:00 Oxygen Delivery Method Room Air 10/02/24 08:00 BMI result Body Mass Index 38.4 Const Other: Absence of Cushingoid features. Absence of acromegalic features. Neck exam reveals nl size thyroid about 15 gms. No thyroid nodules palpable. Heart S1 S2, Reg R/R. No M/R G. Skin exam reveals absence of vitiligo or acanthosis nigricans. Foot exam deferred Results Reviewed Results Reviewed: Laboratory Last Values Glucose (Clinic) 115 mg/dL (60-115) 10/02/24 08:04 Assessment & Plan Assessment & Plan (1) Diabetes mellitus type 2 with complications: Code(s): E11.8 - Type 2 diabetes mellitus with unspecified complications Category: Medical Plan: 48-year-old type 2 diabetic with a history of neuropathy follow closely postop by Podiatry and nephropathy followed by Nephrology. A1c in the office today 7.4%. His 2 week freestyle Solo 3+ sensor equals a GMIof 6.6% so he is improving his numbers. He is having some constipation on Ozempic. He reports he is drinking plenty of water and adding fiber. Will move up to Ozempic 5 mg and he was asked to add a 3rd a cup of prune juice daily and I have given him a prescription for Dulcolax as needed. He will continue to follow up with podiatry for post op and ongoing care Orders: Orders AMB Hemoglobin A1c Today E11.8 - Type 2 diabetes mellitus with unspecified complications Medications: New semaglutide (Ozempic) 0.5 mg (0.736 mL) subcut QWEEK 3 mL 6RF 28 days bisacodyl (Dulcolax (bisacodyl)) 5 mg PO BEDTIME 30 tabs 6RF 30 days Changed From insulin lispro 1 sliding scale dose subcut TID 30 days 30 mL 11RF MDD 56 E10.65 - Type 1 diabetes mellitus with hyperglycemia To insulin lispro 22-32 tid 1 sliding scale dose subcut TID 30 mL 11RF 30 days MDD 78 E10.65 - Type 1 diabetes mellitus with hyperglycemia Discontinued semaglutide (Ozempic) Discontinued Reason: Doctor's Order .25 weekly for two weeks then increase to .5mg subcutaneously every week 28 days 3 mL 10RF fenofibrate Discontinued Reason: Doctor's Order 54 mg PO DAILY 90 tabs 1RF Coding Level of Care Code Est Pt Level 4 (69066) Complex EM visit Add On G2211 Diagnoses Diabetes mellitus type 2 with complications E11.8 Time Spent (min) 30 Comment face to face, chart review, exam, charting
[2024-10-02 08:00] VITALS: BP 120/84; PULSE 85; O2SAT 98; BMI 38.4
[2024-10-02 08:07] LABS: Glucose, Whole Blood 115 mg/dL (60-115)
== END 2024-10-02 08:25 | disposition home or self-care (01) ==
LOC: HO.ENCR 07:51
PROVIDERS: PCP Nurse Practitioner Family; Visit Provider Nurse Practitioner Adult Health
DX: E11.8 Type 2 diabetes mellitus with unspecified complications (principal)
CPT/HCPCS: 99214; G2211

== ENCOUNTER → 2024-10-02 07:51 | Outpatient (BNVA) | payer OTHER, SELFPAY | PROVIDERS: PCP Nurse Practitioner Family; Visit Provider Nurse Practitioner Adult Health | DX: E11.69 Type 2 diabetes mellitus with other specified complication (principal); K59.00 Constipation, unspecified | CPT/HCPCS: 82947; 99212 ==